=== PATIENT | female | born 1950 | race Caucasian/White ===

== ENCOUNTER → 2020-11-19 13:05 | Outpatient (REF) | payer MEDICARE, SELFPAY ==
--- NOTE | 2020-11-19 13:15 | CA_ITS ---
Transthoracic Echocardiogram Patient (Last, First, Middle): Angela Reyes A Gender: Female Date of : 1950 Age: 70 Procedure Date: 11/19/2020 Procedure Type: Transthoracic Echocardiogram Location: OP Height: 162.56 cm Weight: 95.25 kg BSA: 2.00 m2 Heart Rate: bpm BP: 132 / 80 mmHg Triple Air Valve Tester: ARUNA Referring MD: Maurizio Martinez MD Symptoms: R06.02 SOB I35.0 NON RHEUMATIC Study Quality: Fair/contrast Conclusions: - The left ventricular systolic function is mildly decreased. The visually estimated ejection fraction is between 40-45%. - The inferior wall and anterolateral wall are hypokinetic. - The left atrium is severely dilated. - There is mild aortic valve stenosis. - There is moderate to severe mitral valve regurgitation. - Mild to moderate pulmonary hypertension is present. Findings Procedure Information Contrast agent, definity, is being given per protocol without apparent complications. Left Ventricle Normal left ventricular cavity size. There is mildly increased left ventricular wall thickness. The left ventricular systolic function is mildly decreased. The visually estimated ejection fraction is between 40-45%. There is evidence of regional wall motion abnormalities. Abnormal diastolic function is noted. Spectral Doppler is indicative of a pseudonormal filling pattern. Elevated filling pressures. Wall Motion Rest Echo Findings The inferior wall and anterolateral wall are hypokinetic. Right Ventricle Normal right ventricular cavity size and systolic function. Atria The left atrium is severely dilated. Aortic Valve There is a normal trileaflet aortic valve. There is no evidence of calcification of the aortic valve. There is mild aortic valve stenosis. There is no aortic valve regurgitation. Mitral Valve The posterior mitral leaflet has restricted mobility. There is moderate to severe mitral valve regurgitation. There is no mitral valve stenosis. Pulmonic Valve Normal pulmonic valve structure and function. There is trace pulmonic valve regurgitation. Tricuspid Valve Normal tricuspid valve structure and function. There is mild anterior tricuspid leaflet thickening. There is mild tricuspid valve regurgitation. Normal right atrial pressure. Mild to moderate pulmonary hypertension is present. Great Vessels All visible segments of the aorta are normal in size. The visualized portions of the pulmonary artery and branches are normal. Venous The inferior vena cava is normal in size and collapses greater than 50% with inspiration. Pericardium/Pleural There is no evidence of pericardial effusion. Prior Study Comparison No prior study available for comparison. Measurements 2D Linear Measurements IVSd: 1.13 0.6-0.9/0.6-1.0 cm LVIDd: 6.13 3.9-5.3/4.2-5.9 cm LVIDs: 4.82 2.0-3.6 cm LVPWd: 1.07 0.7-1.1 cm Ao Root: 2.85 2.1-3.5 cm LV Mass: 361.75 67-162/88-224 g LVOT Diam: 1.95 3.0+(-)1.3 cm Mitral Valve MV Pk E: 1.32 MV PK A: 1.23 MV Decel Time: 325.75 E/A: 1.07 E'Lateral: 0.07 E'Medial: 0.04 Decel [place]: 4.06 MR VTI: 2.02 Aortic Valve AoV Pk Nik: 2.62 AoV Mn Nik: 1.73 AoV VTI: 0.62 AoV Pk Grad: 27.49 Aov Mn Grad: 13.98 LVOT LVOT Pk Nik: 0.82 LVOT Mn Nik: 0.55 LVOT VTI: 0.25 LVOT Pk Grad: 2.70 LVOT Mn Grad: 1.41 LVOT Diam: 1.95 LVOT Area: 3.00 Diastolic Function MV Pk E: 1.32 MV Pk A: 1.23 E/A: 1.07 E'Medial: 0.04 E' Laterial: 0.07 Tricuspid Valve TR Pk Nik: 3.32 TR Pk Grad: 44.20 RA Press: 3.00 RVSP: 47.00 Great Vessels Aorta Ao Root-2D: 2.85 2.0-3.7 cm Ao Asc: 2.88 2.1-3.4 cm Ao Arch: 2.70 Updated in Other Vendor System with Status of Final Vick Almaraz MD electronically signed on 11/21/2020 6:04:13 PM with status of Final
== END ==
LOC: HO.CARD 13:05
PROVIDERS: PCP Family Medicine; Visit Provider Family Medicine
DX: R06.02 Shortness of breath (principal); I35.0 Nonrheumatic aortic (valve) stenosis
CPT/HCPCS: 93306; Q9957

== ENCOUNTER 2021-01-08 10:00 | Outpatient (REF) | payer MEDICARE, SELFPAY ==
[2021-01-08 10:44] LABS: Anion Gap 11 (12-20); Blood Urea Nitrogen 31 mg/dL (9-16); Calcium 8.9 mg/dL (8.4-10.2); Carbon Dioxide 24 mmol/L (22-29); Chloride 106 mmol/L (96-108); Estimated Glomerular Filt Rate 35; Glucose Random 134 mg/dL (60-115); Potassium 5.5 mmol/L (3.3-5.1); Sodium 135 mmol/L (135-145)
== END 2021-01-08 10:01 | disposition home or self-care (01) ==
LOC: HO.LAB 10:00
PROVIDERS: PCP Family Medicine; Visit Provider Nurse Practitioner Adult Health
DX: E87.5 Hyperkalemia (principal)
CPT/HCPCS: 36415; 80048

== ENCOUNTER 2025-03-19 10:36 | Outpatient (AMB) | payer MEDICARE, SELFPAY ==
--- NOTE | 2025-03-19 10:36 | A.OFFPC_ITS ---
Vital Signs 03/19/25 10:43 Height 5 ft 4 in Weight 183 lb BMI 31.4 BP 148/72 H Blood Pressure Location Rt brachial Position Sitting Respiration 17 Pulse 97 Pulse Source Pulse Oximeter Temp 97.7 F Temp Source Temporal Artery Scan Pulse Oximetry (%) 99 Oxygen Delivery Method Room Air Intake Visit Reasons: follow up - Dr. Martinez pt. 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 Last seen 01/02/2025 CV: [place] [facility] [place]. She is on norvasc, aldactone. GI: Follows with Dr Vaca Previously seen by Hematology-[facility]. Has history of ROSANNE. Reports that she thinks she needs an infusion. Dr Martinez previously ordered In the past was following with Derm-[facility] and ENT-[facility] Colonoscopy-reports UTD Mammo overdue-ordered ROS CONSTITUTIONAL: Denies weight loss, fever and chills. HEENT: Denies changes in vision and hearing. RESPIRATORY: Denies SOB and cough. CV: Denies palpitations and CP GI: Denies abdominal pain, nausea, vomiting and diarrhea. : Denies dysuria and urinary frequency. MSK: Denies new myalgia and joint pain. SKIN: Denies rash and pruritus. NEUROLOGICAL: Denies headache PSYCHIATRIC: Denies recent changes in mood. PHYSICAL EXAM: GENERAL: Alert and oriented x 3. NAD EYES: EOMI. Anicteric. HENT: Moist mucous membranes. No scleral icterus. No cervical lymphadenopathy. LUNGS: Clear to auscultation bilaterally. CARDIOVASCULAR: Regular rate and rhythm. No murmur. No JVD. ABDOMEN: Soft, non-tender +bs EXTREMITIES: No edema. Non-tender. SKIN: No rashes or lesions. Warm. NEUROLOGIC: No focal neurological deficits. CN II-XII grossly intact PSYCHIATRIC: Cooperative. Appropriate mood and affect [facility] Social History e-Cigarette/Vaping Use: Never Used Physical exam (Primary Care) Vital Signs: Last Vital Signs Temp 97.7 F 03/19/25 10:43 Pulse 97 03/19/25 10:43 Resp 17 03/19/25 10:43 BP 148/72 H 03/19/25 10:43 Pulse Ox 99 03/19/25 10:43 Oxygen Delivery Method Room Air 03/19/25 10:43 BMI result Body Mass Index 31.4 Tobacco/Smoking Status: Tobacco use Status Tobacco use date assessed 03/19/25 03/19/25 10:46 e-Cigarette/Vaping Use Never Used 03/19/25 10:46 Coding Level of Care Code New Pt Level 4 (54679) Complex EM visit Add On G2211 Diagnoses Iron deficiency anemia, unspecified iron deficiency anemia type D50.9 Iron deficiency anemia type: unspecified iron deficiency Alcoholic cirrhosis of liver without ascites K70.30 Hepatic cirrhosis type: alcoholic cirrhosis Ascites presence: without ascites Primary hypertension I10 Hypertension type: primary hypertension Fatigue, unspecified type R53.83 Fatigue type: unspecified Assessment & Plan Assessment & Plan (1) Iron deficiency anemia: Code(s): D50.9 - Iron deficiency anemia, unspecified Category: Medical Qualifiers: Iron deficiency anemia type: unspecified iron deficiency Qualified Code(s): D50.9 - Iron deficiency anemia, unspecified (2) Cirrhosis: Code(s): K74.60 - Unspecified cirrhosis of liver Category: Medical Qualifiers: Hepatic cirrhosis type: alcoholic cirrhosis Ascites presence: without ascites Qualified Code(s): K70.30 - Alcoholic cirrhosis of liver without ascites (3) Hypertension: Code(s): I10 - Essential (primary) hypertension Category: Medical Qualifiers: Hypertension type: primary hypertension Qualified Code(s): I10 - Essential (primary) hypertension (4) Fatigue: Code(s): R53.83 - Other fatigue Category: Medical Qualifiers: Fatigue type: unspecified Qualified Code(s): R53.83 - Other fatigue Plan 74 year old to establish care Past medical, surgical social history reviewed Fatigue-check labs HTN-controlled on current medications. Continue cardiology follow up Mammo overdue and ordered Orders: Orders Complete Blood Count Auto Diff Today D50.9 - Iron deficiency anemia, unspecified, I10 - Essential (primary) hypertension, K74.60 - Unspecified cirrhosis of liver, R53.83 - Other fatigue Comprehensive Met. Panel Today D50.9 - Iron deficiency anemia, unspecified, I10 - Essential (primary) hypertension, K74.60 - Unspecified cirrhosis of liver, R53.83 - Other fatigue TSH reflex Free T4 Today D50.9 - Iron deficiency anemia, unspecified, I10 - Essential (primary) hypertension, K74.60 - Unspecified cirrhosis of liver, R53.83 - Other fatigue UA CC w/rflx Micro + Cult Today D50.9 - Iron deficiency anemia, unspecified, I10 - Essential (primary) hypertension, K74.60 - Unspecified cirrhosis of liver, R53.83 - Other fatigue MM tomosynthesis screening BI Today Z12.31 - Encounter for screening mammogram for malignant neoplasm of breast IRON PROFILE Today D50.9 - Iron deficiency anemia, unspecified, I10 - Essential (primary) hypertension, K74.60 - Unspecified cirrhosis of liver, R53.83 - Other fatigue Vitamin B12 and Folate Today D50.9 - Iron deficiency anemia, unspecified, I10 - Essential (primary) hypertension, K74.60 - Unspecified cirrhosis of liver, R53.83 - Other fatigue
[2025-03-19 10:43] VITALS: BP 148/72; PULSE 97; RESP 17; TEMP 36.5; O2SAT 99; BMI 31.4
--- OUTSIDE RECORDS SUMMARY | 2025-03-19 11:18 | XMS_ITS | Clinical Summary ---
Author Organization [facility] [address] [facility] Address [address] [place] [address] Phone Care Team Providers Care Radiology Technician Name Role Phone Maurizio Martinez MD Primary Care Provider [phone] Allergies Active Allergy Reactions Criticality Noted Date Comments Lisinopril 08/29/2024 Medications spironolactone (ALDACTONE) 25 mg tablet Take 1 tablet (25 mg total) by mouth 1 (one) time each day in the morning. Active sertraline (ZOLOFT) 25 mg tablet Take 1 tablet (25 mg total) by mouth 1 (one) time each day in the morning. Active magnesium oxide (MAG-OX) 400 mg (241.3 elemental magnesium) tablet Take 1 tablet (400 mg total) by mouth 2 times daily. 1 Active loratadine (Claritin) 10 mg tablet Take 1 tablet (10 mg total) by mouth. 8 Active furosemide (Lasix) 20 mg tablet Take 1 tablet (20 mg total) by mouth. 3 Active fluticasone propionate (Flonase Allergy Relief) 50 mcg/actuation nasal spray Administer into affected nostril(s). 8 Active carvediloL (COREG) 3.125 mg tablet Take 1 tablet (3.125 mg total) by mouth 2 times daily. 1 Active budesonide-form oteroL (SYMBICORT) 80-4.5 mcg/actuation inhaler Inhale 2 puffs by mouth 2 times daily. 2 Active atorvastatin (LIPITOR) 80 mg tablet Take 1 tablet (80 mg total) by mouth daily. 1 Active amLODIPine (NORVASC) 5 mg tablet Take 1 tablet (5 mg total) by mouth 1 (one) time each day. Active albuterol HFA (PROAIR HFA ; PROVENTIL HFA ; VENTOLIN HFA) 90 mcg/actuation inhaler Inhale 2 puffs by mouth Every 4 hours as needed. 1 Active Active Problems Problem Noted Date Diagnosed Date Alcoholic cirrhosis of liver without ascites ([facility] V24, [facility] V28) 08/29/2024 Assessment & Plan (10/17/2024 9:23 AM EST): Assessment & Plan (08/29/2024 2:28 PM EST): Orders: US Abdomen Complete; Future Comprehensive metabolic panel; Future Hepatic function panel; Future Prothrombin time with INR; Future Alpha fetoprotein tumor marker; Future Iron with TIBC and ferritin; Future Anemia 08/29/2024 Assessment & Plan (08/29/2024 2:28 PM EST): Orders: Iron with TIBC and ferritin; Future CHF (congestive heart failure) ([facility] V24, [facility] V28) 08/29/2024 Diabetes ([facility] V24, [facility] V28) 12/17/2020 Hypertension 12/17/2020 PVC (premature ventricular contraction) 12/18/19 21 SOB (shortness of breath) 12/17/2020 Surgical History Surgery Date Site/Laterality Comments CHOLECYSTECTOMY PROCEDURE: HISTORICAL CHOLECYSTECTOMY OTHER SURGICAL HISTORY PROCEDURE: RI REPOSITIONING IO LENS PROSTHESIS REQ INC SPX ESOPHAGOGASTRODUODENOSCOPY 07/20/2022 - 08/19/2022 nl, no variaces (3yr) Medical History Medical History Date Comments Asthma DX:Asthma Eczema DX:Eczema Nasal polyps DX:Nasal polyps GERD (gastroesophageal reflux disease) DX:GERD (gastroesophageal reflux disease) Venous insufficiency DX:Venous i nsufficiency Depression DX:Depression Macular degeneration DX:Macular degeneration Cirrhosis ([facility] V24, [facility] V28) DX:Cirrhosis (HCC) Social History Tobacco Use Types Packs/Day Years Used Date Smoking Tobacco: Never Tobacco Cessation:Counseling Given: Not Answered Alcohol Use Standard Drinks/Week Comments Yes 0 (1 standard drink = 0.6 oz pur e alcohol) Comments Unknown Sex and Gender Information Value Date Recorded Sex Assigned at Not on file Legal Sex Female 1:56 AM EST Gender Identity Not on file Sexual Orientation Not on file Obstetrics History Last Filed Vital Signs Vital Sign Reading Time Taken Comments Blood Pressure - - Pulse - - Temperature - - Respiratory Rate - - Oxygen Saturation - - Inhaled Oxygen Concentration - - Weight 79.4 kg (175 lb) 10/17/2024 9:00 AM EST Height 162.6 cm (5' 4 ) 10/17/2024 9:00 AM EST Body Mass Index 30.04 10/17/2024 9:00 AM EST Plan of Treatment Health Maintenance Due Date Last Done Comments Breast Cancer Screening 1950 Diabetes: Annual Foot Exam 1960 Diabetes: Annual Retina Eye Exam 1960 Hepatitis A Vaccines (1 of 2 - Risk 2-dose series) 1969 Pneumococcal Vaccine: 50+ Years (1 of 2 - PCV) 1969 Zoster Vaccines (1 of 2) 2000 Hepatitis B Vaccines (1 of 3 - Risk 3-dose series) 2010 RSV Immunization Adult Patients (1 - Risk 60-74 years 1-dose series) 2010 Cholesterol Screening (Lipid Panel) 07/23/2022 Colorectal Cancer Screening: Colonoscopy 07/23/2022 Falls Risk Assessment 07/23/2022 Medicare Annual Wellness Visit 07/23/2022 Osteoporosis Screening (Bone Density Screening) 07/23/2022 Social Influencers of Health Screening 07/23/2022 Diabetes: Annual Urine Albumin-Creatinine Ratio (uACR) 08/02/2022 12/11/2020 Diabetes: Blood Sugar Control Test (HGBA1C) 08/02/2022 COVID-19 Vaccine ( season) 2024 12/26/2021, 11/21/2020, 10/31/2020 Depression Screening 08/20/2024 Influenza Vaccine (#1) 2025 Diabetes: Annual GFR (Glomerular Filtration Rate) 08/29/2025 08/29/2024, 04/05/2022, 12/14/2020, Additional history exists Hypertension/CHF/CAD Annual BMP Blood Test 08/29/2025 08/29/2024, 04/05/2022, 12/14/2020, Additional history exists DTaP,Tdap,and Td Vaccines (2 - Td or Tdap) 11/10/2031 11/09/2021 Hepatitis C Screening Completed 11/11/2021 HIB Vaccines Aged Out No longer eligi ble based on patient's age to complete this topic HPV Vaccines Aged Out No longer eligi ble based on patient's age to complete this topic IPV Vaccines Aged Out No longer eligi ble based on patient's age to complete this topic MMR Vaccines Aged Out No longer eligi ble based on patient's age to complete this topic Meningococcal ACWY Vaccine Aged Out N o longer eligible based on patient's age to complete this topic Meningococcal B Vaccine Aged Out No l onger eligible based on patient's age to complete this topic RSV Immunization Patients Under 20 months Aged Out No longer eligible based on patient's age to complete this topic Varicella Vaccines Aged Out No longer eligible based on patient's age to complete this topic Procedures Procedure Name Priority Date/Time Associated Diagnosis Comments COMPREHENSIVE METABOLIC PANEL Routine 08/29/2024 1:55 PM EST Alcoholic cirrhosis of liver without ascites (CMS/HCC V24, CMS/HCC V28) from Last 3 Months or Most Recently Relevant to Health Maintenance Results * (ABNORMAL) Comprehensive metabolic panel (08/29/2024 1:55 PM EST) Sodium 139 133 - 145 mmol/L LAB CHEMISTRY METHOD 08/29/2024 3:[address] [facility] Potassium 4.4 3.5 - 5.5 mmol/L LAB CHEMISTRY METHOD 08/29/2024 3:[address] [facility] Chloride 109 96 - 110 mmol/L LAB CHEMISTRY METHOD 08/29/2024 3:[address] [facility] CO2 24 21 - 32 mmol/L LAB CHEMISTRY METHOD 08/29/2024 3:[address] [facility] Anion Gap 6 3 - 11 LAB CHEMISTRY METHOD 08/29/2024 3:17 PM [facility] Glucose 103(H) 70 - 100 mg/dL LAB CHEMISTRY METHOD 08/29/2024 3:17 PM [facility] BUN 15 5 - 25 mg/dL LAB CHEMISTRY METHOD 08/29/2024 3:17 PM [facility] Creatinine 1.03 0.50 - 1.10 mg/dL LAB CHEMISTRY METHOD 08/29/2024 3:17 PM [facility] eGFR 57(L) >=60 mL/min/1. 73m2 LAB CHEMISTRY METHOD 08/29/2024 3:17 PM [facility] Comment:Calculation based on the Chronic Kidney Disease Epidemiology Collaboration (CKD-EPI) equation refit without adjustment for race. BUN/Creatinine Ratio 14.6 LAB CHEMISTRY METHOD 08/29/2024 3:17 PM [facility] Calcium 8.0(L) 8.5 - 10.5 mg/dL LAB CHEMISTRY METHOD 08/29/2024 3:17 PM [facility] AST (SGOT) 47(H) 10 - 42 unit/L LAB CHEMISTRY METHOD 08/29/2024 3:17 PM [facility] ALT (SGPT) 32 10 - 60 unit/L LAB CHEMISTRY METHOD 08/29/2024 3:17 PM [facility] Alkaline Phosphatase 148(H) 42 - 121 unit/L LAB CHEMISTRY METHOD 08/29/2024 3:17 PM [facility] Total Protein 6.4 6.0 - 8.0 g/dL LAB CHEMISTRY METHOD 08/29/2024 3:17 PM [facility] Albumin 3.1(L) 3.2 - 5.0 g/dL LAB CHEMISTRY METHOD 08/29/2024 3:17 PM [facility] Total Bilirubin 2.2(H) 0.0 - 1.4 mg/dL LAB CHEMISTRY METHOD 08/29/2024 3:17 PM EST [facility] Blood Venous blood specimen / Unknown Venipuncture / Unknown 08/29/2024 1:55 PM EST 08/29/2024 2:34 PM EST Elizabeth LIM LAB BLOOD ORDERABLES Final R esult [facility] ([facility]) [facility] [address] [place] [address], from Last 3 Months or Most Recently Relevant to Health Maintenance Insurance MEDICARE Care Teams Radiology Technician Relationship Specialty Start Date End Date Maurizio Martinez MD [address] [place] [address] [place] [id number] PCP - General 09/09/07
--- OUTSIDE RECORDS SUMMARY | 2025-03-19 11:18 | XMS_ITS | Encounter Summary ---
Author Organization [facility] Address [address] [facility] [address] [place] [id number] Phone Care Team Providers Care Toll Line Mechanic Name Role Phone Pcp, Unknown Primary Care Provider Unavailgita e Julianne Taylor MD Unavailable [email or web address] Maurizio Martinez MD Primary Care Provider Julianne Taylor MD Unavailable [email or web address] Encounter Details Date Type Department Care Team (Late st Contact Info) Description 04/27/2023 Procedure Pass [facility] Cardiac US [address] [place] [address] Social History Tobacco Use Types Packs/Day Years Used Date Smoking Tobacco: Never Smokeless Tobacco: Never Alcohol Use Standard Drinks/Week Comments Yes 14 (1 standard drink = 0.6 oz pu re alcohol) previously drank more Education Answer Date Recorded Are you interested in more education? Not on gautam e 12/15/2022 Are you concerned about learning? Not on file 12/15/2022 No 12/15/2022 No 12/15/2022 Digital Access Answer Date Recorded No 01/10/2023 No 01/10/2023 Reliable internet access at home? Not on file 01/10/2023 Device with a working camera? Not on file Comments Unknown Sex and Gender Information Value Date Recorded Sex Assigned at Female 11/26/2020 11:38 AM EDT Legal Sex Female 11:24 AM EDT Gender Identity Female 11/26/2020 11:38 AM EDT Sexual Orientation Straight 11/26/2020 11 :38 AM EDT documented as of this encounter Plan of Treatment Not on file documented as of this encounter Visit Diagnoses Not on filedocumented in this encounter Additional Health Concerns Assessment Noted Time PHQ-9 Depression Total Score: 8 04/04/20 22 3:27 PM EDT PHQ-2 Depression Total Score: 4 04/04/20 22 3:27 PM EDT documented as of this encounter Care Teams Toll Line Mechanic Relationship Specialty Start Date End Date Pcp, Unknown PCP - General 01/10/23 12/05/23 Maurizio Martinez MD [address] [place] [address] [place] [address] PCP - General Internal Medicine 12/06/23 Julianne Taylor MD Partners Attributed Provider 04/28/23 12/05/23 Julianne Taylor MD Partners Attributed Provider 04/28/23 12/28/23 documented as of this encounter Additional Source Comments The information contained in this document represents components of the legal health record. It is not the complete legal health record.[facility]
== END 2025-03-19 11:07 | disposition home or self-care (01) ==
LOC: HO.HMCHD 10:36
PROVIDERS: PCP Family Medicine; Visit Provider Internal Medicine
DX: D50.9 Iron deficiency anemia, unspecified (principal); K70.30 Alcoholic cirrhosis of liver without ascites; I10 Essential (primary) hypertension; R53.83 Other fatigue

== ENCOUNTER → 2025-03-19 10:36 | Outpatient (BNVA) | payer MEDICARE, SELFPAY | PROVIDERS: PCP Family Medicine; Visit Provider Internal Medicine | DX: D50.9 Iron deficiency anemia, unspecified (principal); K70.30 Alcoholic cirrhosis of liver without ascites; I10 Essential (primary) hypertension; R53.83 Other fatigue | CPT/HCPCS: 99202 ==

== ENCOUNTER 2025-03-19 11:17 | Outpatient (REF) | payer MEDICARE, SELFPAY ==
[2025-03-19 13:25] LABS: Hematocrit 27.8 % (37.0-47.0); Hemoglobin 9.7 g/dl (12.0-16.0); Imm Gran Abs Auto 0.01 X10*3/uL (0.00-0.03); Imm Gran Pct Auto 0.3 % (0.0-0.4); Lymphocytes Absolute Auto 0.7 X10*3/uL (1.2-4.9); Mean Corpuscular HGB Conc 34.9 g/dl (31.0-35.0); Mean Corpuscular Hemoglobin 38.8 pg (27.0-33.0); NRBC Abs Auto 0.000 X10*3/uL (0.0-0.012); NRBC Pct Auto 0.0 /100WBC (0.0-0.2); Red Blood Count 2.50 X10*6/uL (4.20-5.50); White Blood Count 3.3 X10*3/uL (4.8-10.8)
[2025-03-19 13:33] LABS: Appearance Urine Clear; Glucose Urine UA Negative (Negative); PH 5.0 (5.0-9.0); Specific Gravity - Urine 1.015 (1.005-1.025); UMIC TRIGGER UACC YES
[2025-03-19 13:36] LABS: MANUAL DIFF FLAG SCAN; Mean Corpuscular Volume 111.2 fL (80.0-98.0); Platelet Count 69 X10*3/uL (160-400)
[2025-03-19 13:52] LABS: Alanine Aminotransferase 26 U/L (0-31); Albumin Level 3.1 g/dL (3.5-5.0); Alkaline Phosphatase 156 U/L (39-117); Anion Gap 11 (12-20); Aspartate Amino Transferase 60 U/L (5-31); Blood Urea Nitrogen 18 mg/dL (9-16); Calcium 8.2 mg/dL (8.4-10.2); Carbon Dioxide 21 mmol/L (22-29); Chloride 112 mmol/L (96-108); Estimated Glomerular Filt Rate 54; Iron 99 mcg/dL (30-160); Percent Iron Saturation 40 % (15-50); Potassium 5.2 mmol/L (3.3-5.1); Sodium 139 mmol/L (135-145); Total Iron Binding Capacity 245 mcg/dL (228-428); Total Protein 6.3 g/dL (6.5-8.0); Unsaturated Iron Binding 146 ug/dL
[2025-03-19 14:18] LABS: Folate < 2.2 ng/mL (> or = 4.0); Vitamin B12 479 pg/mL (200-900)
[2025-03-19 14:47] LABS: Free T4 (Free Thyroxine) 0.90 ng/dL (0.71-1.85)
== END 2025-03-19 11:18 | disposition home or self-care (01) ==
LOC: HO.10HDL 11:17
PROVIDERS: Visit Provider Internal Medicine
DX: I10 Essential (primary) hypertension (principal); K74.60 Unspecified cirrhosis of liver; R53.83 Other fatigue; D50.9 Iron deficiency anemia, unspecified
CPT/HCPCS: 36415; 80053; 81001; 82607; 82746; 83540; 84439; 84443; 85025

== ENCOUNTER 2025-05-27 18:41 | Emergency (ER) | payer MEDICARE, SELFPAY ==
--- NOTE | ~2025-05-27 | XR_ITS ---
CLINICAL HISTORY: CP 1 view chest x-ray Comparison: None provided Findings: The heart is mildly enlarged. Atherosclerotic vascular disease of the aortic arch. Mild tortuosity of descending thoracic aorta. No consolidation, significant pleural effusion or pneumothorax. No acute fracture. Degenerative changes thoracic spine. IMPRESSION: 1. No acute findings. This document has been electronically signed by: Tanisha Oswald MD on 05/27/2025 20:08:56
[2025-05-27 18:46] VITALS: BP 170/78; PULSE 82; RESP 20; TEMP 36.4; O2SAT 100; BMI 30.9
--- NOTE | 2025-05-27 18:53 | ECG_ITS ---
Test Reason : SOB Blood Pressure : */* mmHG Vent. Rate : 73 BPM Atrial Rate : 73 BPM P-R Int : 186 ms QRS Dur : 130 ms QT Int : 416 ms P-R-T Axes : 41 -33 110 degrees QTcB Int : 458 ms Normal sinus rhythm Left axis deviation Left bundle branch block Abnormal ECG No previous ECGs available Referred By: Generic ED Physician Electronically Signed By: TYRONE RAO MD
[2025-05-27 19:34] LABS: MANUAL DIFF FLAG NO
[2025-05-27 19:37] LABS: Venous Blood Gas Refer to POC result
[2025-05-27 19:38] LABS: VBG HCO3 19 mmol/L (22-26); VBG O2 % Saturation 75.0 %
[2025-05-27 19:41] LABS: Hematocrit 25.3 % (37.0-47.0); Hemoglobin 8.9 g/dl (12.0-16.0); Imm Gran Abs Auto 0.01 X10*3/uL (0.00-0.03); Imm Gran Pct Auto 0.4 % (0.0-0.4); Lymphocytes Absolute Auto 0.5 X10*3/uL (1.2-4.9); Mean Corpuscular HGB Conc 35.2 g/dl (31.0-35.0); Mean Corpuscular Hemoglobin 39.6 pg (27.0-33.0); NRBC Abs Auto 0.000 X10*3/uL (0.0-0.012); NRBC Pct Auto 0.0 /100WBC (0.0-0.2); Red Blood Count 2.25 X10*6/uL (4.20-5.50)
[2025-05-27 19:48] LABS: INTERNATIONAL NORM RATIO 1.2 (0.9-1.1); Prothrombin Time 13.9 SEC (10.9-12.4)
[2025-05-27 19:51] LABS: Alanine Aminotransferase 18 U/L (0-31); Albumin Level 2.9 g/dL (3.5-5.0); Alkaline Phosphatase 134 U/L (39-117); Anion Gap 10 (12-20); Aspartate Amino Transferase 49 U/L (5-31); Blood Urea Nitrogen 12 mg/dL (9-16); Calcium 8.2 mg/dL (8.4-10.2); Carbon Dioxide 21 mmol/L (22-29); Chloride 114 mmol/L (96-108); Creatinine Clr Calc Pharmacy 59.8; Estimated Glomerular Filt Rate > 60; Magnesium 1.6 mg/dL (1.6-2.6); Potassium 4.8 mmol/L (3.3-5.1); Sodium 140 mmol/L (135-145); Total Protein 5.9 g/dL (6.5-8.0)
[2025-05-27 19:52] LABS: COVID-19 Test Negative (Negative); IDNOW Serial# 55D5AD1C
[2025-05-27 19:54] LABS: IDNOW Serial# 58CA691E; Influenza B2 Negative (Negative)
[2025-05-27 19:59] LABS: Troponin-I High Sensitivity 15.2 ng/L (<3.5-17.0)
[2025-05-27 20:04] LABS: NT Pro B Type Natriuretic Pept 298.9 pg/mL (<300)
[2025-05-27 20:25] LABS: Mean Corpuscular Volume 112.4 fL (80.0-98.0); Platelet Count 51 X10*3/uL (160-400); White Blood Count 2.5 X10*3/uL (4.8-10.8)
--- NOTE | 2025-05-27 22:01 | PC.NURSE ---
pt's brother walked up to triage door demanding plan of care for patient what exactly are we waiting for? informed brother t/w will evaluate, apologized for delay. Pt taken into a dept to bed before t/w could follow up.
[2025-05-27 22:26] VITALS: BP 163/72; PULSE 65; RESP 18; O2SAT 99
--- NOTE | 2025-05-27 22:35 | ED.GENADULT ---
HPI - General Adult General Chief complaint: Dyspnea Stated complaint: SOB, Difficulty breathing, Weakness Time Seen by Provider: 05/27/25 21:59 Source: patient, family (brother), RN notes reviewed and old records reviewed Mode of arrival: ambulatory Limitations: no limitations History of Present Illness ED Provider: Emma HPI narrative: 75-year-old female with a past medical history significant for hypertension, alcoholic liver disease, iron-deficiency anemia, asthma, congestive heart failure presents for evaluation of shortness of breath and fatigue. She reports that her symptoms have been declining for about a week and a half to 2 weeks. However today her symptoms seem much worse She reports a dry cough starting today. Her weakness and fatigue is significantly worse today pain She denies any leg swelling pain Denies any abdominal pain, distention. She reports requiring a blood transfusion in the past due to anemia and feels like this may be the cause of her symptoms today Denies any sick contacts Related Data Home Medications ?Medication ?Instructions ?Recorded ?Confirmed amlodipine 5 mg tablet 5 mg PO DAILY 03/19/25 carvedilol 3.125 mg tablet 3.125 mg PO BID 03/19/25 ferrous sulfate 325 mg (65 mg 325 mg PO DAILY 03/19/25 iron) tablet (Feosol) fluticasone propionate 250 2 inh inhalation ONCE 03/19/25 mcg/actuation blister powder for inhalation (Flovent Diskus) sertraline 25 mg tablet 25 mg PO QAM 03/19/25 spironolactone 25 mg tablet 25 mg PO QAM 03/19/25 vitamin E 180 mg/2 mL oral drops mg PO .qd 03/19/25 (Purevita Vitamin E) Previous Rx's ?Medication ?Instructions ?Recorded albuterol sulfate 90 mcg/actuation 2 puff inhalation Q4-6H PRN 02/26/25 aerosol inhaler (Ventolin HFA) shortness of breath or wheezing #6.7 grams prednisone 20 mg tablet 40 mg (2 x 20 mg) PO DAILY #8 tabs 05/27/25 Allergies Allergy/AdvReac Type Severity Reaction Status Date / Time lisinopril Allergy Severe Anaphylaxis Verified 05/27/25 18:51 Review of Systems Constitutional: Constitutional: Denies body ache(s), Denies chills, Denies fever(s), Denies headache(s) and Denies snoring Eyes: Eyes: Denies blurry vision, Denies floaters and Denies irritation ENT: Denies vertigo, Denies dizziness and Denies headache(s) Cardiovascular: Cardiovascular: Denies chest pain, Denies chest pain at rest, Reports dyspnea and Reports dyspnea on exertion Respiratory: Respiratory: Denies change in phlegm color, Denies chest congestion, Reports cough, Denies excessive phlegm production, Denies pain on inspiration, Denies pain with cough, Reports dyspnea, Reports dyspnea on exertion, Denies snoring, Denies stridor and Reports wheezing Gastrointestinal: Gastrointestinal: Denies abdominal pain, Denies nausea and Denies vomiting Musculoskeletal: Musculoskeletal: Denies back pain Integumentary/Breasts: Skin/Breast: Denies rash Neurologic: Denies vertigo, Denies dizziness and Denies headache(s) Allergic/Immunologic: Allergic/Immunologic: Reports wheezing PMFSH Social History Social History e-Cigarette/Vaping Use: Never Used Advance Directives: No Advance Directives Information Provided: No Do you have a plan to hurt others: No Plan Physical Exam ED Vital Signs: Vital Signs - 24 hr 05/27/25 18:46 05/27/25 22:26 Temperature 97.5 F Pulse Rate 82 65 Respiratory Rate 20 18 Blood Pressure 170/78 H 163/72 H Pulse Oximetry 100 99 Oxygen Delivery Method Room Air Room Air BMI result Body Mass Index 30.9 Const General: healthy appearing, comfortable, no acute distress, alert and awake Nutritional Appearance: well nourished Orientation/consciousness: patient oriented x3 HENMT Head: Yes normocephalic and Yes atraumatic Eyes Eyelids: Yes eyelids normal Conjunctivae: conjunctivae normal Sclerae: sclerae normal Corneas: corneas normal Pupils: Equal, round and reactive pupils present EOM: EOMs intact bilaterally Neck Neck: Yes full ROM Resp Other: There was an expiratory wheeze heard in the left lung field only Effort & Inspection: normal respiratory effort, able to speak in complete sentences and not labored Cardio Rate: regular rate Rhythm: regular rhythm GI Inspection: No distended Palpation (GI): Soft to palpation, not firm, nontender, no guarding and not rigid Skin General skin exam: elasticity normal Neuro General: patient oriented x3 Cranial nerves: Yes Equal, round and reactive pupils present and Yes Bilaterally intact EOM present Cognition (Neuro): normal cognition Extrem Other: Moving all extremities well without any obvious deformities Medical Decision Making Medical Decision Making [facility] Narrative: 75-year-old female presents for evaluation of primarily dyspnea on exertion and associated dry cough and weakness/fatigue. Her symptoms started a couple weeks ago with a got significantly worse today. No fevers or chills, she has no chest pain. No significant leg swelling. She had a workup that included labs, EKG and a chest x-ray as well as viral swabs. The chest x-ray shows no significant pleural effusions, no focal infiltrates, no pneumothorax. Viral swabs are negative. The patient's troponin is negative, BNP is just under 300, she rules out for ACS, she does not have an acute CHF exacerbation. Her EKG showed a sinus rhythm with left bundle branch block. I was able to view [facility] records and the patient had an EKG dated 05/07/2025 that confirms the left bundle branch is not new. The patient does have some wheezing on exam which could be related to asthma, we will treat her with a short course of prednisone. The patient does not require blood transfusion, she has no active bleeding and a hemoglobin today is 8.9. The patient's abdomen is nondistended, she has no abdominal pain, she does not have any evidence of ascites that would be contributing to her dyspnea Differential Diagnosis Differential Diagnoses: The differential diagnosis associated with the presentation includes Acute asthma exacerbation CHF Pneumonia Bronchitis COVID Influenza Liver cirrhosis Admission/Observation Consideration of admission/observation: Escalation of care including admission/observation considered Lab Data [facility] Lab Attestation statement: I reviewed the patient's lab results. Pancytopenia consistent with a baseline. No significant left shift. The patient's chloride is slightly elevated to 114 possibly due to mild dehydration with a carbon dioxide level of 21 this could be due to tachypnea. Troponin and BNP within normal limits 05/27/25 19:28 05/27/25 19:28 Labs: Lab Results 05/27/25 05/27/25 Range/Units 19:28 19:34 WBC 2.5 L (4.8-10.8) X10*3/uL RBC 2.25 L (4.20-5.50) X10*6/uL Hgb 8.9 L (12.0-16.0) g/dl Hct 25.3 L (37.0-47.0) % MCV 112.4 H (80.0-98.0) fL MCH 39.6 H (27.0-33.0) pg MCHC 35.2 H (31.0-35.0) g/dl RDW 13.4 (11.0-16.0) % Plt Count 51 L D (160-400) X10*3/uL MPV 10.0 (9.4-12.3) fL Immature Gran % (Auto) 0.4 (0.0-0.4) % Neut % (Auto) 62.9 (45-73) % Lymph % (Auto) 21.3 (20-40) % [place] % (Auto) 5.5 (2-11) % Eos % (Auto) 9.1 H (0-4) % Baso % (Auto) 0.8 (0-2) % Lymph # (Auto) 0.5 L (1.2-4.9) X10*3/uL [place] # (Auto) 0.1 (0.1-1.2) X10*3/uL Eos # (Auto) 0.2 (0.0-0.4) X10*3/uL Baso # (Auto) 0.0 (0.0-0.2) X10*3/uL Abs Immat Gran (auto) 0.01 (0.00-0.03) X10*3/uL Absolute Neuts (auto) 1.6 L (2.0-8.3) x10*3/uL Absolute Nucleated RBC 0.000 (0.0-0.012) X10*3/uL Nucleated RBC % (auto) 0.0 (0.0-0.2) /100WBC PT 13.9 H (10.9-12.4) SEC INR 1.2 H (0.9-1.1) VBG pH 7.43 (7.32-7.43) VBG pCO2 29 mmHg VBG pO2 45 mmHg VBG HCO3 19 L (22-26) mmol/L VBG O2 Saturation 75.0 % VBG Base Excess -3.4 mmol/L Sodium 140 (135-145) mmol/L Potassium 4.8 (3.3-5.1) mmol/L Chloride 114 H (96-108) mmol/L Carbon Dioxide 21 L (22-29) mmol/L Anion Gap 10 L (12-20) BUN 12 (9-16) mg/dL Creatinine 0.84 (0.5-1.4) mg/dL Estim Creat Clear Calc 59.8 Estimated GFR > 60 Random Glucose 91 (60-115) mg/dL Calcium 8.2 L (8.4-10.2) mg/dL Magnesium 1.6 (1.6-2.6) mg/dL Total Bilirubin 1.6 H (0.0-1.0) mg/dL Direct Bilirubin 0.7 H (0.0-0.5) mg/dL AST 49 H (5-31) U/L ALT 18 (0-31) U/L Alkaline Phosphatase 134 H (39-117) U/L Troponin I High Sens 15.2 (<3.5-17.0) ng/L NT-Pro-B Natriuret Pep 298.9 (<300) pg/mL Total Protein 5.9 L (6.5-8.0) g/dL Albumin 2.9 L (3.5-5.0) g/dL COVID-19 ([facility]) Negative (Negative) COVID-19 Clin Com See Note Influenza Type A (DEL) Negative (Negative) Influenza Type B (DEL) Negative (Negative) Influenza A & B Note See Note Independent Interpretation I performed an independent interpretation of an: EKG and Plain X-Ray (Agree with Radiology interpretation) Interpretation: Normal sinus rhythm with a rate of [address] segment elevations or depressions. Left bundle branch block noted Radiology Impression Discussion of test interpretation with radiology: I have reviewed the radiologist's reading. Radiologist Impression: CLINICAL HISTORY: CP 1 view chest x-ray Comparison: None provided Findings: The heart is mildly enlarged. Atherosclerotic vascular disease of the aortic arch. Mild tortuosity of descending thoracic aorta. No consolidation, significant pleural effusion or pneumothorax. No acute fracture. Degenerative changes thoracic spine. IMPRESSION: 1. No acute findings. This document has been electronically signed by: Tanisha Oswald MD on 05/27/2025 20:08:56 Discharge Plan Discharge Clinical Impression: Acute dyspnea Patient Disposition: Home, Self-Care Instructions: Asthma (ED) Additional Instructions: Your workup in the ER today was reassuring. You do have a mild anemia but not requiring a blood transfusion. You do not have any evidence of acute congestive heart failure. No evidence of pneumonia. Your symptoms are likely multifactorial including due to asthma. You may take prednisone 40 mg daily for the next 4 days You may continue taking the rest of your medications as prescribed. Follow up with your primary doctor, return for new or worsening symptoms Prescriptions: New prednisone 20 mg tablet 40 mg PO DAILY Qty: 8 0RF No Action albuterol sulfate [Ventolin HFA] 90 mcg/actuation HFA aerosol inhaler 2 puff inhalation Q4-6H PRN (Reason: shortness of breath or wheezing) Qty: 6.7 3RF amlodipine 5 mg tablet 5 mg PO DAILY spironolactone 25 mg tablet 25 mg PO QAM carvedilol 3.125 mg tablet 3.125 mg PO BID ferrous sulfate [Feosol] 325 mg (65 mg iron) tablet 325 mg PO DAILY sertraline 25 mg tablet 25 mg PO QAM fluticasone propionate [Flovent Diskus] 250 mcg/actuation blister with device 2 inh inhalation ONCE Purevita Vitamin E 180 mg/2 mL drops PO .qd Print Language: Dutch
[2025-05-27 23:32] VITALS: BP 163/72; PULSE 65; RESP 18; TEMP 36.4; O2SAT 99
== END 2025-05-27 23:33 | disposition home or self-care (01) ==
PROVIDERS: Emergency Provider Emergency Medicine; PCP Internal Medicine
DX: R06.00 Dyspnea, unspecified (principal); I11.0 Hypertensive heart disease with heart failure; I50.9 Heart failure, unspecified; I44.7 Left bundle-branch block, unspecified; K70.9 Alcoholic liver disease, unspecified; D50.9 Iron deficiency anemia, unspecified; Z79.899 Other long term (current) drug therapy
CPT/HCPCS: 71045; 80053; 82248; 82803; 83735; 83880; 84484; 85025; 85610; 87502; 87635; 93005; 99283; 99284

== ENCOUNTER → 2025-05-27 18:53 | Outpatient (BNV) | payer MEDICARE, SELFPAY | PROVIDERS: Emergency Provider Emergency Medicine; PCP Internal Medicine; Visit Provider Internal Medicine Cardiovascular Disease | DX: I44.7 Left bundle-branch block, unspecified (principal) | CPT/HCPCS: 93010 ==

== ENCOUNTER → 2025-05-27 18:54 | Outpatient (BNV) | payer MEDICARE, SELFPAY | PROVIDERS: PCP Internal Medicine; Visit Provider Specialist | DX: R07.9 Chest pain, unspecified (principal) | CPT/HCPCS: 71045 ==

== ENCOUNTER 2025-06-23 14:15 | Outpatient (REF) | payer MEDICARE, SELFPAY ==
[2025-06-23 18:09] LABS: MANUAL DIFF FLAG NO
[2025-06-23 18:10] LABS: Hematocrit 28.9 % (37.0-47.0); Hemoglobin 9.6 g/dl (12.0-16.0); Imm Gran Abs Auto 0.01 X10*3/uL (0.00-0.03); Imm Gran Pct Auto 0.3 % (0.0-0.4); Lymphocytes Absolute Auto 0.6 X10*3/uL (1.2-4.9); Mean Corpuscular HGB Conc 33.2 g/dl (31.0-35.0); Mean Corpuscular Hemoglobin 37.6 pg (27.0-33.0); Mean Corpuscular Volume 113.3 fL (80.0-98.0); NRBC Abs Auto 0.000 X10*3/uL (0.0-0.012); NRBC Pct Auto 0.0 /100WBC (0.0-0.2); Platelet Count 71 X10*3/uL (160-400); Red Blood Count 2.55 X10*6/uL (4.20-5.50); White Blood Count 3.5 X10*3/uL (4.8-10.8)
[2025-06-23 18:29] LABS: Iron 167 mcg/dL (30-160); Percent Iron Saturation 70 % (15-50); Total Iron Binding Capacity 240 mcg/dL (228-428); Unsaturated Iron Binding 73 ug/dL
[2025-06-23 19:00] LABS: Folate 3.2 ng/mL (> or = 4.0); Vitamin B12 564 pg/mL (200-900)
== END 2025-06-23 14:16 | disposition home or self-care (01) ==
LOC: HO.WFDLDS 14:15
PROVIDERS: PCP Internal Medicine; Visit Provider Internal Medicine
DX: I10 Essential (primary) hypertension (principal); K70.30 Alcoholic cirrhosis of liver without ascites; D50.9 Iron deficiency anemia, unspecified; R53.83 Other fatigue; R06.02 Shortness of breath; J45.909 Unspecified asthma, uncomplicated
CPT/HCPCS: 82607; 82746; 83540; 84443; 85025; 96127; 99212

== ENCOUNTER 2025-06-23 14:15 | Outpatient (AMB) | payer MEDICARE, SELFPAY ==
--- NOTE | 2025-06-23 14:28 | MHC.PC.OV ---
Vital Signs 06/23/25 14:31 Height 5 ft 4 in Weight 180 lb BMI 30.9 BP 161/67 H Blood Pressure Location Lt brachial Position Sitting Respiration 14 Pulse 92 Pulse Source Pulse Oximeter Temp 97.9 F Temp Source Temporal Artery Scan Pulse Oximetry (%) 100 Oxygen Delivery Method Room Air Intake Visit Reasons: Congestive heart failure Intake Note: ED c follow up sob Cvir Tech Required: No Allergies lisinopril Allergy (Severe, Verified 06/23/25 14:28) Anaphylaxis Tobacco use date assessed: 06/23/25 Fall risk assessment: No Falls in past year Last assessed Fall Risk: 06/23/25 Dental Screening Dental Screen Date: 06/23/25 Did you have a dental visit in the last 12 months?: Yes Did you have a dental problem in the last 6 months where you did not have access to dental care?: No Was dental information given to patient?: Patient has dentist HPI HPI Comments History of Present Illness Details The patient is a 75 year old female with a past medical history of diabetes, hypertension, GERD, asthma, eczema, cirrhosis, ICM, venous insufficiency presenting for ER follow up She was evaluated in the ER on 05/27/25. Presented with week to 2 week history of shortness of breath and fatigue. CXR reassuring. EKG LBBB same as prior. BNP<300. Viral swabs negative. Hgb 8.9. Advised likely bronchitis/asthma exercation. She received prednisone x 4 days. Reports that she still feels like she is increasingly anemic CV: Follows with [facility] in [place]. She is on norvasc, aldactone. LBBB. Denies chest pain. Still endorsing some shortness of breath Asthma: On albuterol flovent GI: Follows with Dr Vaca Previously seen by [facility]ology[facility]. Has history of ROSANNE. Reports that she thinks she needs an infusion. Dr Martinez previously ordered. In the past was following with [facility] and [facility] Colonoscopy-reports UTD Mammo overdue-ordered ROS CONSTITUTIONAL: Denies weight loss, fever and chills. HEENT: Denies changes in vision and hearing. RESPIRATORY: Denies SOB and cough. CV: Denies palpitations and CP GI: Denies abdominal pain, nausea, vomiting and diarrhea. : Denies dysuria and urinary frequency. MSK: Denies new myalgia and joint pain. SKIN: Denies rash and pruritus. NEUROLOGICAL: Denies headache PSYCHIATRIC: Denies recent changes in mood. PHYSICAL EXAM: GENERAL: Alert and oriented x 3. NAD EYES: EOMI. Anicteric. HENT: Moist mucous membranes. No scleral icterus. No cervical lymphadenopathy. LUNGS: Clear to auscultation bilaterally. CARDIOVASCULAR: Regular rate and rhythm. No murmur. No JVD. ABDOMEN: Soft, non-tender +bs EXTREMITIES: No edema. Non-tender. SKIN: No rashes or lesions. Warm. NEUROLOGIC: No focal neurological deficits. CN II-XII grossly intact PSYCHIATRIC: Cooperative. Appropriate mood and affect [facility] Social History Housing: House Patient Tobacco Use Status: Never used Tobacco e-Cigarette/Vaping Use: Never Used Second Hand Smoke Exposure: No service: No Current occupational status: retired Cognitive needs: No Hearing needs: No Vision needs: No Questionnaire PHQ-9 Over the last 2 weeks, how often have you been bothered by any of the following problems? 1. Little interest or pleasure in doing things: not at all 2. Feeling down, depressed, or hopeless: not at all 3. Trouble falling or staying asleep, or sleeping too much: not at all 4. Feeling tired or having little energy: not at all 5. Poor appetite or overeating: not at all 6. Feeling bad about yourself - or that you are a failure or have let yourself or your family down: not at all 7. Trouble concentrating on things, such as reading the newspaper or watching television: not at all 8. Moving or speaking so slowly that other people could have noticed. Or the opposite - being so fidgety or restless that you have been moving around a lot more than usual: not at all 9. Thoughts that you would be better off or of hurting yourself in some way: not at all Total score: 0 Depression Screening Interpretation: Negative Depression Screening Done: Yes 51198 - PHQ-9 Billing: Yes Source: Developed by Drs. Leonel Messina, Brianna Vail, Rock Castano and colleagues, with an educational dionisio from [employer]. Thrive Questionnaire Date Thrive assessed: 06/23/25 I am a: Patient What is your living situation today?: I have a steady place to live Within the past 12 months, did the food you bought not last and you didn't have the money to get more?: Never true Within the past 12 months, did you worry whether your food would run out before you got money to buy more?: Never true Do you have trouble paying for medicines?: No Do you have trouble getting transportation to medical appointments?: No Do you have trouble paying your heating and electricity bill?: No Do you have trouble taking care of your child, family member or friend?: No Do you have trouble with day-to-day activities such as bathing, preparing meals, shopping, managing finances, etc.?: No Are you currently unemployed and looking for a job?: No Are you interested in more education?: No THRIVE Score: 0 AUDIT C Alcohol Use Questionnaire (AUDIT-C) 1. How often do you have a drink containing alcohol?: 2-3 times a week 2. How many drinks containing alcohol do you have on a typical day when you are drinking?: 1 or 2 3. How often do you have six or more drinks on one occasion?: Never Total Score: 3 DENNIS-7 AMB Questionnaire DENNIS-7 Date DENNIS - 7 assessed: 06/23/25 Feeling nervous, anxious, or on edge: 0 = Not at all Not being able to stop or control worryin = Not at all Worrying too much about different things: 0 = Not at all Trouble relaxin = Not at all Being so restless that it is hard to sit still: 0 = Not at all Becoming easily annoyed or irritable: 0 = Not at all Feeling afraid as if something awful might happen: 0 = Not at all Total DENNIS-7 score (0-4 normal; 5-9 mild; 10-14 moderate; 15-21 severe): 0 Source: Developed by Drs. Leonel Messina, Brianna Vail, Rock Castano and colleagues, with an educational dionisio from [employer]. DENNIS-7 Assessment Billing DENNIS-7 Assessment Tool: DENNIS-7 Assessment 39618 Physical exam (Primary Care) Vital Signs: Last Vital Signs Temp 97.9 F 06/23/25 14:31 Pulse 92 06/23/25 14:31 Resp 14 06/23/25 14:31 BP 161/67 H 06/23/25 14:31 Pulse Ox 100 06/23/25 14:31 Oxygen Delivery Method Room Air 06/23/25 14:31 BMI result Body Mass Index 30.9 Tobacco/Smoking Status: Tobacco use Status Tobacco use date assessed 06/23/25 06/23/25 14:33 Patient Tobacco Use Status Never used Tobacco 06/23/25 14:33 e-Cigarette/Vaping Use Never Used 06/23/25 14:33 PHQ-9: PHQ-9 Score PHQ-9: Total score 0 06/23/25 15:01 Depression Screening Interpretation: Negative Thrive Assessment: Date of Thrive Assessment Date Thrive assessed 06/23/25 06/23/25 14:33 Coding Level of Care Code Est Pt Level 4 (23721) Diagnoses Primary hypertension I10 Hypertension type: primary hypertension Iron deficiency anemia, unspecified iron deficiency anemia type D50.9 Iron deficiency anemia type: unspecified iron deficiency Alcoholic cirrhosis of liver without ascites K70.30 Hepatic cirrhosis type: alcoholic cirrhosis Ascites presence: without ascites Additional Codes DENNIS-7 Assessment Billing - DENNIS-7 Assessment Tool: DENNIS-7 Assessment 08797 ([id number]) PHQ-9 - 50394 - PHQ-9 Billing: Yes ([id number]) Assessment & Plan Assessment & Plan (1) Hypertension: Code(s): I10 - Essential (primary) hypertension Category: Medical Qualifiers: Hypertension type: primary hypertension Qualified Code(s): I10 - Essential (primary) hypertension (2) Iron deficiency anemia: Code(s): D50.9 - Iron deficiency anemia, unspecified Category: Medical Qualifiers: Iron deficiency anemia type: unspecified iron deficiency Qualified Code(s): D50.9 - Iron deficiency anemia, unspecified (3) Cirrhosis: Code(s): K74.60 - Unspecified cirrhosis of liver Category: Medical Qualifiers: Hepatic cirrhosis type: alcoholic cirrhosis Ascites presence: without ascites Qualified Code(s): K70.30 - Alcoholic cirrhosis of liver without ascites Plan 75 year old female for ER follow up ER course reviewed Hypertension is well controlled. Continue cardiology follow up in [place] Continue GI follow up for cirrhosis. She will follow Dr Vaca Check labs Orders: Orders Complete Blood Count Auto Diff 06/23/25 D50.9 - Iron deficiency anemia, unspecified, I10 - Essential (primary) hypertension, K70.30 - Alcoholic cirrhosis of liver without ascites, R53.83 - Other fatigue IRON PROFILE 06/23/25 D50.9 - Iron deficiency anemia, unspecified, I10 - Essential (primary) hypertension, K70.30 - Alcoholic cirrhosis of liver without ascites, R53.83 - Other fatigue Pathologist Review - CBC 06/23/25 D50.9 - Iron deficiency anemia, unspecified, I10 - Essential (primary) hypertension, K70.30 - Alcoholic cirrhosis of liver without ascites, R53.83 - Other fatigue TSH reflex Free T4 06/23/25 D50.9 - Iron deficiency anemia, unspecified, I10 - Essential (primary) hypertension, K70.30 - Alcoholic cirrhosis of liver without ascites, R53.83 - Other fatigue Vitamin B12 and Folate 06/23/25 D50.9 - Iron deficiency anemia, unspecified, I10 - Essential (primary) hypertension, K70.30 - Alcoholic cirrhosis of liver without ascites, R53.83 - Other fatigue
[2025-06-23 14:31] VITALS: BP 161/67; PULSE 92; RESP 14; TEMP 36.6; O2SAT 100; BMI 30.9
--- OUTSIDE RECORDS SUMMARY | 2025-06-23 17:15 | XMS_ITS | Encounter Summary ---
Author Organization [facility] Address [address] [place] [phone] Phone Care Team Providers Care Fender Repairer Name Role Phone Pcp, Unknown Primary Care Provider Unavailgita e Julianne Taylor MD Unavailable [email or web address] Maurizio Martinez MD Primary Care Provider Julianne Taylor MD Unavailable [email or web address] Encounter Details Date Type Department Care Team (Late st Contact Info) Description 04/27/2023 Procedure Pass [facility] Cardiac US [address] [place] [address] Social History Tobacco Use Types Packs/Day Years [...] documented as of this encounter Care Teams Fender Repairer Relationship Specialty Start Date End Date Pcp, Unknown PCP - General 01/10/23 12/05/23 Maurizio Martinez MD [address] [place] [address] [place] [address] PCP - General Internal Medicine 12/06/23 Julianne Taylor MD Partners Attributed Provider 04/28/23 12/05/23 Julianne Taylor MD Partners Attributed Provider 04/28/23 12/28/23 documented as of this encounter Additional Source Comments The information contained in this document represents components of the legal health record. It is not the complete legal health record.[facility]
--- OUTSIDE RECORDS SUMMARY | 2025-06-23 17:15 | XMS_ITS | Clinical Summary ---
Author Organization Located Within [facility] Address [address] [facility] [address] [place] [id number] Phone Care Team Providers Care Construction Consultant Name Role Phone Maurizio Martinez MD Primary Care Provider Allergies Active Allergy Reactions Criticality Noted Date Comments Lisinopril Angioedema High 12/06/2020 Medications albuterol 90 mcg/actuation inhaler Inhale 2 puffs into the lungs every 4 (four) hours as needed. 8 Inhaler 1 1 Active sertraline (ZOLOFT) 50 MG tablet Take 1 tablet (50 mg total) by mouth daily. 90 tablet 1 1 Active carvedilol (COREG) 3.125 MG tablet Take 1 tablet (3.125 mg total) by mouth 2 (two) times a day with meals. 180 tablet 3 1 Active atorvastatin (LIPITOR) 80 MG tablet Take 1 tablet (80 mg total) by mouth nightly at bedtime. 30 tablet 1 Active Additional Information Patient not taking.Reported on 04/05/2022 magnesium oxide (MAG-OX) 400 mg (241.3 mg elemental) tablet Take 1 tablet (400 mg total) by mouth 2 (two) times a day. 60 tablet 3 1 Active spironolactone (ALDACTONE) 25 MG tablet Take 25 mg by mouth daily. Active budesonide-formo terol (SYMBICORT) 80-4.5 mcg/actuation inhalerIndicatio ns:Asthma, unspecified asthma severity, unspecified whether complicated, unspecified whether persistent Inhale 2 puffs into the lungs 2 (two) times a day. 10.2 g 3 2 Active furosemide (LASIX) 40 MG tablet Take 1 tablet (40 mg total) by mouth daily. 90 tablet 3 3 Active empagliflozin (JARDIANCE) 10 mg tablet Take 1 tablet (10 mg total) by mouth daily. 90 tablet 3 4 Active amLODIPine (NORVASC) 5 MG tablet Take 1 tablet (5 mg total) by mouth daily. 90 tablet 3 4 Active Active Problems Problem Noted Date Diagnosed Date Chronic bilateral low back pain without sciatica 04/06/2022 Overview (04/06/2022): Lower back pressure, worse when first standing up with position changes and laying down flat. Sometimes sleeps in recliner because of back pain. Sometimes gets better after walking other times not. Tylenol helped. Whole lower back. No stiffness. Ongoing for two months. Ultrasound and xray of lower spine at [facility] that reportedly showed old compression fracture in L1. Has not done physical therapy since when she was in the hospital. Occasionally advil. No radiation of pain. No pain in hips or knees. Assessment & Plan (04/06/2022 2:16 PM EDT): No urinary/bowel symptoms, radicular symptoms, derick weakness. No history of cancer (though not utd on cancer screening) or symptoms of infection. No point tenderness along spine. Generalized tenderness to palpation in paraspinal muscles in lumbar area. Has reportedly unrevealing plain radiograph and ultrasound at [facility] (unfortunately we do not have those records available). Has known history of compression fracture of L1 from 10/2021. - physical therapy referral - close follow up for improvement of symptoms, could consider MRI if not improving - osteoporosis w/u as elsewhere - try to get [facility] imaging records Shortness of breath 04/06/2022 Overview (04/06/2022): Shortness of breath ongoing since hospitalization in october and even before that since September 2020. Attributed to anemia during last hospitalization 10/2021. Had some improvement with PRBC. Has been having serial monitoring of Hgb at [facility] and seen by hematology with bone marrow biopsy. Was told bone marrow biopsy was inconclusive. Shortness of breath brought on by walking. Alleviated by sitting or inhaler. Inhaler does not always help, helps about 75% of the time. Diagnosed with asthma in her late 30s. Had spirometry with reversal previously, not recently done. 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 Currently taking albuterol and combivent. Sometimes shortness of breath feels like asthma other times different. No associated chest pain, back pain, reflux. Cannot walk up stairs without getting short of breath. Can walk 15 feet before shortness of breath. Never smoker. Assessment & Plan (04/06/2022 1:49 PM EDT): Patient has had chronic exertional shortness of breath. Has several possible etiologies of dyspnea. Cardiac component seems well managed currently, no orthopnea, swelling, at dry weight. Recent echo with mild and mild-moderate mitral regurgitation. Last coronary angiography without obstructive CAD. Anemia has been suggested as route cdl driver, though seems like an extreme exercise limitation for relatively modest drop in hemoglobin in someone with chronic anemia. Certainly component of deconditioning. Given wheezing and frequent improvement with albuterol would work on optimizing asthma regimen. No significant allergy symptoms. 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 Offered additional resources and/or medications to help reduce cravings, deferred for now. No hx withdrawal. Positive colorectal cancer screening using Colog uard test 04/06/2022 Overview (04/06/2022): Reportedly positive cologuard 05/2020. Has declined colonoscopy and EGD. Assessment & Plan (04/06/2022 2:18 PM EDT): Discussed findings of positive cologuard with concern for GI malignancy. Discussed risk/benefit of EGD and colonoscopy. She understands the risks of not proceeding and she continues to decline. Age-related osteoporosis wit hout current pathological fracture 04/06/2022 Overview (04/06/2022): History of L1 fracture likely 2/2 osteoporosis. On Ca/Vit D. Assessment & Plan (04/06/2022 2:30 PM EDT): - ordered DEXA scan Type 2 diabetes mellitus 04/06/2022 Overview (04/06/2022): History of diabetes, diet controlled. HEMOGLOBIN A1C Date Value Ref Range Status 12/07/2020 5.0 4.3 - 5.6 % Final Comment: HbA1c levels 5.7-6.4% represent pre-diabetes, indicating impaired glucose control and an increased risk of developing diabetes compared with lower HbA1c levels. The diagnostic HbA1c level for diabetes is 6.5% or greater. Autoimmune hemolytic anemia 04/04/2022 Acute exacerbation of CHF (congestive heart fail ure) 11/09/2021 Assessment & Plan (11/10/2021 2:42 PM EDT): Progressive ELIAS w/o typical angina. History of weight gain as an outpatient raising concern for subacute fluid accumulation and leading a heart failure exacerbation. Baseline chronic systolic heart failure w/ recovered LVEF to 60%. [facility] w/ minimal coronary disease. Moderate MR. EKG w/ e/o LBBB (140ms), likely leading to dyssynchrony. Elevated BP to 200/90 on arrival. No e/o PE, pulm edema, pna, nor asthma exacerbation. TSH 4.49 - Appreciate input from her continuity terminal clerk - Lasix 20mg IV x 1 today - Standing weights, daily - Decrease hydralazine to 12.5mg q8 hours - Continue coreg 6.25mg BID - If BPs elevated, would increase coreg to 12.5mg BID (notes say she has been on this dose, though fill records say 6.25mg) - Pending TTE - need to discuss with cards about whether or not to be on aspirin? - assess for covid 19 booster NYHA class 1 heart failure with reduced ejection fraction 01/06/2021 AVERY (acute kidney injury) 01/06/2021 Nonrheumatic mitral valve regurgitation 01/07/20 21 Pancytopenia 12/12/2020 Overview (04/06/2022): Has chronic pancytopenia with normal SPEP/SFLC, folate (previously low on supplementation), B12, and iron studies. CTAP unrevealing aside from known cirrhosis/splenomegaly. 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 The B cell clone comprises only 1% of cellularity by flow cytometry. Normal hematopoietic marrow with minimal morphologic dysplasia and no increase in blasts... may represent a monoclonal B lymphocytosis or possibly an unrecognized B-cell lymphoproliferative disorder...the cause of pancytopenia may not be related to the B cell clone, although morphologic dysplasia appears insufficient to establish myelodysplastic syndrome...MDS could be considered as diagnosis of exclusion Assessment & Plan (04/06/2022 2:28 PM EDT): - requested they obtain records from most recent hematology visit for further interpretation of bone marrow biopsy - offered second evaluation here at [facility] if they would like with our hematology team, they declined for now and would like to follow with current equine intern Assessment & Plan (11/10/2021 2:44 PM EDT): Chronic, h/o folate deficiency. MCV 108. Cirrhosis likely contributing to thrombocytopenia. Leukopenia's significance unclear. Prior labs w/ REGINO 1:320 and low c3/c4. Folate and B12 are normal - Follow up SPEP, FLC, UPEP - consider rheum referral -- or review if she has outpt one Assessment & Plan (12/15/2020 10:00 AM EDT): Previously with thrombocytopenia, but now with pancytopenia (leukopenia to 2s and anemia-Hgb 9). Her anemia is macrocytic and is likely due to a combination of cirrhosis, folate deficiency, and bone marrow suppression (?alcohol). She may have chronic GI loses, but none clinically evident. Her cirrhosis is likely also to account for her elevated INR to 1.5. Her work up is most likely consistent with her known cirrhosis. S/p Vitamin K trial 12/12-) without change in INR. Work up: -Normal/negative: iron studies, B12, SPEP ratio, Anti-Sm/PHLEBOTOMIST SUPERVISOR/INSTRUCTOR, dsDNA, -Abnormal: folate low at 2.4, CRP slightly elevated at 12.5, C3 and C4 slightly low - Trend INR, CBC Microscopic hematuria 12/12/2020 Assessment & Plan (12/15/2020 10:00 AM EDT): 5-10 RBCs in random UA, no protein. No signs of infection. Pt w/o hx of derick hematuria or smoking. Pt w relative coagulopathy here w Plts 60s and INR 1.5 iso cirrhosis - o/p hematuria eval Alcoholic cirrhosis of liver with ascites 2020 Overview (04/06/2022): Thought 2/2 MAYES vs alcohol use. Follows with hepatology in [facility] last 05/2021. Volume: Has ascites and HFrecEF. Ascites high SAAG. Ascites protein 1.5. Infection: no hx SBP, no current indication for primary ppx Bleeding: No known history of GIB. Discussed indications for EGD (EV screen) and colonoscopy (colon ca screen). We discussed risks and benefits, which she understood but does not wish to pursue these screening tests at this time. Encephalopathy: No hx HE Screening: HBV immune, HCV negative, HAV nonimmune. RUQUS 11/2020 w/o focal lesion and AFP 11/2021 normal. Assessment & Plan (04/06/2022 2:10 PM EDT): - recommended f/u with hepatology (she favors getting imaging at [facility]) - due for RUQUS - due for EGD (discussed risk/benefit, she declines for now) - recommended HAV immunization, discussion reasoning - recommended alcohol cessation, discussed risks of ongoing damage to liver Assessment & Plan (12/15/2020 9:59 AM EDT): MAYES vs EtOH cirrhosis. New diagnosis of cirrhosis this admission on RUQUS, with moderate level ascites. No known hx of GIB, HE, alk hep or SBP. Positive REGINO at 1:320 but otherwise autoimmune w/u negative to date. Awaiting LKM/liver cytosol Ab - Consult to hepatology, they have signed off and will see her in clinic--will call her to schedule - Work up pending for cirrhosis: LKM and Liver cytosol Ab - Volume: as per under CHF. Ascites w high SAAG low TP c/w portal hypertensive etiology for hepatic origin. - Infection: no prior history of SBP, not on ppx. S/p Dx para 12/10, no evidence of SBP. Does not meet criteria at this time for primary ppx. - Bleeding: no known history of GIB although low Hgb (also with folate deficiency), needs screening EGD +/- colo for normal age appropriate cancer screening. On BB for HTN. - Encephalopathy: no known history of HE, not altered this admission - Screening: HBV immune, HCV neg. RUQUS without mass 11/2020. Needs Hep A vaccine on discharge. AFP. Essential hypertension 12/07/2020 Assessment & Plan (04/06/2022 2:19 PM EDT): Elevated BP in the office. Requested she take home BP measurement and send them. She has BP cuff at home and knows how to use. Reviewed good technique. Assessment & Plan (12/13/2020 4:42 PM EDT): Pt with BPs 160-170s in the ED initially, improved with addition of carvedilol. Pt was on dilt prior to admission, which is contraindicated in HFrEF. Now well controlled on carvedilol. - Continue carvedilol - Continue lasix and spironolactone for diuresis Wheezing 12/07/2020 Assessment & Plan (12/13/2020 4:41 PM EDT): More likely cardiac wheeze than due to asthma exacerbation (was treated for this 2 weeks prior). No hx of hospitalization or intubations. Resolved with diuresis. No wheezing on exam, though some dyspnea with walking. - Continue flovent BID - Continue albuterol inhaler PRN - Continue diuresis Acute combined systolic and diastolic heart fail ure 12/06/2020 Assessment & Plan (12/15/2020 9:58 AM EDT): NEW DIAGNOSIS - Presented with 1 month of worsening dyspnea, as well as 1-2 weeks of LE edema and weight gain. CXR with interstitial edema and proBNP elevated.TTE here re-demonstrates HFrEF (LVEF 44%) with diffuse LV hypokinesis but worst in inferior wall, normal RV function and functional MR as well as possible mild pHTN that was seen on her initial TTE done at the OSH. Ischemia was less likely as she had no chest pain or trop elevation, despite ST-depressions seen on her admission ECG. Of note, she had been told she would need cardiac surgery for her findings. RHC on 12/10 showed a wedge of 23. Current goal is to continue aggressive diuresis until euvolemic (and slight increase in BUN or Cr). - strict I/Os - daily standing weights - Preload: lasix 120mg IV BID, spironolactone 100mg daily (given liver disease)--give AM dose of lasix today and recheck PM lytes to see if nearing bump in BUN/Cr, if so, will switch to PO - Afterload: stopped diltiazem, restart coreg at lower dose given bradycardia and pause - GDMT: -- Continue aspirin and atorvastatin -- Consider adding empagliflozin for HF (A1c 5.0, prior hx of diet controlled DM). entresto contraindicated given h/o angioedema - cardiology f/u scheduled in [facility] Dietary folate deficiency anemia 12/06/2020 Resolved Problems Problem Noted Date Diagnosed Date Resolved Date Leg wound, right 11/09/2021 04/06/2022 Assessment & Plan (11/10/2021 2:45 PM EDT): Traumatic w/ delayed healing. Prior HgbA1c 5.0 in 2020 - Would recommend PROCESSOR SOLID PROPELLANT evaluation once she is on the medical floor - Blood cultures NGTD - s/p tdap on 10/12 Known medical problems 12/06/202004/06 Assessment & Plan (11/10/2021 2:46 PM EDT): # EtOH cirrhosis (presumed) - prior ascites, compensated. MELD 13. - Can follow up as an outpatient # AUD - consider ACT consultation if she is amenable, cont thiamine # mood - cont sertraline # asthma - cont ICS Assessment & Plan (12/13/2020 4:37 PM EDT): # NIDDM: previously on metformin, now diet-controlled. A1c 5.0. Blood sugars have been within goal during this hospitalization. # Depression: cont home sertraline 50mg QD Immunizations Immunization Administration Dates Next Due Influenza High-Dose Quadriva lent Preservative Free IM 11/14/2021(Deferred: Patient Refused) Tdap 11/09/2021 Family History Medical History Relation Comments Suicide Father Throat cancer Maternal Grandfather Diabetes Maternal Grandmother Heart attack Maternal Uncle Stroke Mother Stroke Paternal Grandfather Bradycardia Son Seizures Son Relation Status Comments Father Maternal Grandfather Maternal Grandmother Maternal Uncle Mother Paternal Grandfather Son Social History Tobacco Use Types Packs/Day Years Used Date Smoking Tobacco: Never Smokeless Tobacco: Never Tobacco Cessation:Counseling Given: Not Answered Alcohol Use Standard Drinks/Week Comments Yes 14 [...] Orientation Straight 11/26/2020 11 :38 AM EDT Last Filed Vital Signs Vital Sign Reading Time Taken Comments Blood Pressure 163/64 06/27/2024 1:03 PM EST Pulse 69 06/27/2024 1:03 PM EST Temperature 36.2 C (97.2 F) 09/18/2022 2:15 PM EST Respiratory Rate 18 09/18/2022 2:15 PM EST Oxygen Saturation 100% 09/18/2022 2:15 PM EST Inhaled Oxygen Concentration - - Weight 85.3 kg (188 lb) 06/27/2024 1:03 PM EST Height 154.9 cm (5' 0.98 ) 05/28/2024 2:04 PM ED T Body Mass Index 35.54 05/28/2024 2:04 PM EDT Plan of Treatment Health Maintenance Due Date Last Done Comments HEPATITIS A VACCINES (1 of 2 - Risk 2-dose series) 1969 PNEUMOCOCCAL VACCINES (50+ years) (1 of 2 - PCV) 1969 COLOGUARD 1995 COLONOSCOPY 1995 COLORECTAL CANCER SCREENING 1995 FIT TEST 1995 FOBT 1995 SIGMOIDOSCOPY 1995 VIRTUAL COLONOSCOPY 1995 ZOSTER VACCINES (1 of 2) 2000 OSTEOPOROSIS SCREENING INITIAL (ONE-TIME) 2015 DIABETIC EYE EXAM 04/06/2022 URINE MICROALBUMIN/CREATININE RATIO 04/06/2022 12/11/2020, 12/11/2020 DEPRESSION SCREENING 04/04/2023 04/04/2022, 04/04/20 22 HEMOGLOBIN A1C 06/22/2024 12/21/2023, 02/18, 08/25/2022, Additional history exists BLOOD PRESSURE 12/25/2024 06/27/2024 INFLUENZA VACCINE (#1) 2025 RSV VACCINE (1 - 1-dose 75+ series) 2025 COVID-19 VACCINE ( - season) 2025 11/21/2020, 10/31/2020 POTASSIUM LEVEL 06/27/2025 06/27/2024, 05/0 10/2023, 04/27/2023, Additional history exists Adult Td,Tdap Booster 11/10/2031 11/09/2021 HEPATITIS C SCREENING Completed 11/11/2021, 021 SMOKING STATUS SCREENING (Once After 26 Yrs) Completed 06/27/2024 HIB VACCINES Aged Out No longer eligi ble based on patient's age to complete this topic MENINGOCOCCAL VACCINES (ACWY) Aged Out No longer eligible based on patient's age to complete this topic MENINGOCOCCAL VACCINES (B) Aged Out N o longer eligible based on patient's age to complete this topic Medical Devices Not on file Procedures Procedure Name Priority Date/Time Associated Diagnosis Comments BASIC METABOLIC PANEL (BMP) Routine 06/27/2024 3:25 PM EST Heart failure, unspecified HF chronicity, unspecified heart failure type HEMOGLOBIN A1C Routine 12/21/2023 12:11 PM EDT Cardiomyopathy, unspecified type HEPATITIS C ANTIBODY, QUALITATIVE Routine 11/11/2021 5:25 AM EDT MICROALBUMIN/CREATIN INE, RANDOM URINE Routine 12/11/2020 5:30 PM EDT from Last 3 Months or Most Recently Relevant to Health Maintenance Results * Basic metabolic panel (06/27/2024 3:25 PM EST) SODIUM 141 135 - 145 mmol/L [facility] POTASSIUM 4.6 3.4 - 5.0 mmol/L [facility] CHLORIDE 107 98 - 108 mmol/L [facility] CO2 24 23 - 32 mmol/L [facility] BUN 18 8 - 25 mg/dL [facility] CREATININE 0.95 0.50 - 1.00 mg/dL [facility] GLUCOSE 98 70 - 110 mg/dL [facility] CALCIUM 8.6 8.5 - 10.5 mg/dL [facility] EGFR 63 >59 mL/min/1.7 3m2 [facility] Comment:Estimated glomerular filtration rate calculated using the CKD-EPI refit equation. ANION GAP 10 3 - 17 mmol/L [facility] 06/27/2024 3:25 PM EST 06/27/2024 5:57 PM EST us Sj Doty MD, PhD LAB BLOOD BKR ORD ERABLES Final Result [facility] [address] [place] [address] * Hemoglobin A1c (12/21/2023 12:11 PM EDT) HEMOGLOBIN A1C 4.9 4.3 - 5.6 % [facility] Comment:HbA1c levels 5.7-6.4 % represent pre-diabetes, indicating impaired glucose control and an increased risk of developing diabetes compared with lower HbA1c levels. The diagnostic HbA1c level for diabetes is 6.5% or greater. CALC MEAN BLD GLUC 94 mg/dL [facility] Comment:There is no establis hed normal range for the Calculated Mean Blood Glucose (CMBG), however a HbA1c of 5.6% (upper limit of normal) represents a CMBG of 114 mg/dL. The diagnostic hemoglobin A1c level for diabetes is greater than or equal to 6.5% which represents a CMBG greater than or equal to 140 mg/dL. 12/21/2023 12:1 1 PM EDT 12/21/2023 5:27 PM EDT us Sj Doty MD, PhD LAB BLOOD BKR ORD ERABLES Final Result Performing Organization Address City/[facility] Co de Phone Number [address] [address] * Hepatitis C antibody, qualitative (11/11/2021 5:25 AM EDT) Pathologist [facility] HCV ANTIBODY Negative Negative [facility] Comment:Antibodies to HCV no t detected. Does not exclude the possibility of exposure to HCV. Blood 11/11/2021 5:25 AM EDT 11/11/2021 6:34 AM EDT us Emmett Donald MD, MPH LAB BLOOD BKR ORDERABL ES Final Result Performing Organization Address [facility]/ZIP Co de Phone Number [address] [address] * MICROALBUMIN/CREATININE, RANDOM URINE (12/11/2020 5:30 PM EDT) MICROALB/CRE RATIO 18.2 <30.0 mg/g Cre [facility] 12/11/2020 5:30 PM EDT 12/11/2020 5:36 PM EDT us Matt Cha MD URINE ORDERABLES Final Result Performing Organization Address City/[facility] Co de Phone Number [address] [address] from Last 3 Months or Most Recently Relevant to Health Maintenance Insurance MEDICARE PART A & B MEDICARE PART A & B MEDICARE PART A & B MEDICARE PART A & B MEDICARE PART A & B MEDICARE PART A & B MEDICARE PART A & B MEDICARE PART A & B MEDICARE PART A & B Advance Directives For more information, please contact: [phone] (9AM - 5PM [facility], Sunday-Sunday) Documents on File Type Date Recorded Patient Reclaimer Expl anation Healthcare Proxy 12/17/2020 3:37 PM * DNR/DNI (No CPR/No Intubation) (Latest Code Status on File) Date Activated Date Inactivated Comments 11/09/2021 9:05 PM Question Answer Comments Code Status Confirmed With: Patient Code Status Communicated To: Inpatient Attending * Full Code Date Activated Date Inactivated Comments 12/06/2020 5:40 PM 11/09/2021 9:05 PM Question Answer Comments Code Status Confirmed With: Patient Code Status Communicated To: Inpatient Attending Care Teams Construction Consultant Relationship Specialty Start Date End Date Maurizio Martinez MD [address] [place] [address] [place] [facility] [address] PCP - General Internal Medicine 12/06/23 Additional Source Comments The information contained in this document represents components of the legal health record. It is not the complete legal health record.Located Within [facility]
--- OUTSIDE RECORDS SUMMARY | 2025-06-23 17:15 | XMS_ITS | Encounter Summary ---
Author Organization [facility] Address [address] [facility] [address] [place] [address] Phone Care Team Providers Care Lead Technologist In Cytogenetics Name Role Phone Maurizio Martinez MD Primary Care Provider [phone] Lili Huff MD Primary Care Provider + Julianne Taylor MD Unavailable [email or web address] Julianne Taylor MD Unavailable [email or web address] Pcp, Unknown Primary Care Provider Unavailabl e Julianne Taylor MD Unavailable [email or web address] Maurizio Martinez MD Primary Care Provider [phone] Julianne Taylor MD Unavailable [email or web address] Encounter Details Date Type Department Care Team (Late st Contact Info) Description 11/09/2021 Procedure Pass [facility]iac US [address] [place] [address] Social History Tobacco Use Types Packs/Day Years Used Date Smoking Tobacco: Never Smokeless Tobacco: Never Alcohol Use Standard Drinks/Week Comments Yes 2 (1 standard drink = 0.6 oz pur e alcohol) previously drank more Comments Unknown Sex and Gender Information Value Date Recorded Sex Assigned at Female 11/26/2020 11:38 AM EDT Legal Sex Female 11:24 AM EDT Gender Identity Female 11/26/2020 11:38 AM EDT Sexual Orientation Straight 11/26/2020 11 :38 AM EDT documented as of this encounter Functional Status * Calculated C-SSRS Risk Score (Lifetime/Recent) Answer Date of Assessment Author No Risk Indicated 11/10/2021 5:00 PM EDT Bettina Bernardo RN * [place] Suicide Severity Rating Scale (Screener/Recent Self-Report) Question Answer Date of Assessment Author 1. Wish to be (Past 1 Month) No 022 5:00 PM EDT Bettina Bernardo RN 2. Non-Specific Active Suici melva Thoughts (Past 1 Month) No 11/10/2021 5:00 PM EDT Bettina Bernardo RN 6. Suicidal Behavior (Lifetime) No 2 5:00 PM EDT Bettina Bernardo RN documented as of this encounter Plan of Treatment Not on file documented as of this encounter Visit Diagnoses Not on filedocumented in this encounter Additional Health Concerns Infection Onset Date Last Indicated Resolved Time CoV-Risk Comment:Per note documentation 11/09/2021 11/09/2021 4:59 PM EDT documented as of this encounter Care Teams Lead Technologist In Cytogenetics Relationship Specialty Start Date End Date Maurizio Martinez MD [address] [place] [address] Dr ROSE [address] [place] [address] PCP - General Internal Medicine 11/26/20 04/04/22 Lili Huff MD [address] [place] [address] [email or web address] PCP - General Internal Medicine 04/05/22 01/09/23 Julianne Taylor MD [address] [place] [address] PCP - Resident PCP Internal Medicine 04/05/22 01/09/23 Pcp, Unknown PCP - General 01/10/23 12/05/23 Maurizio Martinez MD [address] [place] [address] Dr ROSE [address] [place] [address] PCP - General Internal Medicine 12/06/23 Julianne Taylor MD [employer] Attributed Provider 08/26/22 10/28/22 Julianne Taylor MD [address] [place] [address] Partners Attributed Provider 04/28/23 12/05/23 Julianne Taylor MD [employer] Attributed Provider 04/28/23 12/28/23 documented as of this encounter Additional Source Comments The information contained in this document represents components of the legal health record. It is not the complete legal health record.[facility]
--- OUTSIDE RECORDS SUMMARY | 2025-06-23 17:15 | XMS_ITS | Clinical Summary ---
Author Organization [facility] [address] [facility] Address [address] [place] [address] Phone Care Team Providers Care Heat Plant Specialist Name Role Phone Maurizio Martinez MD Primary Care Provider [phone] Allergies Active Allergy Reactions Criticality Noted Date [...] Date Alcoholic cirrhosis of liver without ascites ([facility] V24, [facility] V28) 08/29/2024 Assessment & Plan (10/17/2024 9:23 [...] and ferritin; Future CHF (congestive heart failure) ([facility] V24, [facility] V28) 08/29/2024 Diabetes ([facility] V24, [facility] V28) 12/17/2020 Hypertension 12/17/2020 PVC (premature ventricular contraction) 12/18/19 21 SOB (shortness of breath) 12/17/2020 Surgical History Surgery Date Site/Laterality Comments CHOLECYSTECTOMY PROCEDURE: HISTORICAL CHOLECYSTECTOMY OTHER SURGICAL HISTORY PROCEDURE: [place] REPOSITIONING IO LENS PROSTHESIS REQ INC SPX ESOPHAGOGASTRODUODENOSCOPY 07/20/2022 - 08/19/2022 nl, no variaces (3yr) Medical History Medical History Date Comments Asthma DX:Asthma Eczema DX:Eczema Nasal polyps DX:Nasal polyps GERD (gastroesophageal reflux disease) DX:GERD (gastroesophageal reflux disease) Venous insufficiency DX:Venous i nsufficiency Depression DX:Depression Macular degeneration DX:Macular degeneration Cirrhosis ([facility] V24, [facility] V28) DX:Cirrhosis (HCC) Social History Tobacco Use [...] 10/17/2024 9:00 AM EST Plan of Treatment Upcoming Encounters Date Type Department Care Team (Late st Contact Info) Description 09/23/2025 11:00 AM EST Office Visit Gastroenterology - [address] [phone] Alisha Chao, FRANCIS [address] [address] Health Maintenance Due Date Last Done Comments Colorectal Cancer Screening: Colonoscopy 1950 Diabetes: Annual Foot Exam 1960 Diabetes: Annual Retina Eye Exam 1960 Hepatitis A Vaccines (1 of 2 - Risk 2-dose series) 1969 Pneumococcal Vaccine: 50+ Years (1 of 2 - PCV) 1969 Zoster Vaccines (1 of 2) 2000 Hepatitis B Vaccines (1 of 3 - Risk 3-dose series) 2010 Cholesterol Screening (Lipid Panel) 07/23/2022 Falls Risk Assessment 07/23/2022 Medicare Annual Wellness Visit 07/23/2022 Osteoporosis Screening (Bone Density Screening) 07/23/2022 Social Influencers of Health Screening 07/23/2022 Diabetes: Annual Urine Albumin-Creatinine Ratio (uACR) 08/02/2022 12/11/2020 Diabetes: Blood Sugar Control Test (HGBA1C) 08/02/2022 Depression Screening 08/20/2024 RSV Immunization Adult Patients (1 - 1-dose 75+ series) 2025 COVID-19 Vaccine ( season) 2025 12/26/2021, 11/21/2020, 10/31/2020 Influenza Vaccine (#1) 2025 Diabetes: Annual GFR [...] EST Alcoholic cirrhosis of liver without ascites ([facility]/HCC V24, CMS/HCC V28) from Last 3 Months or Most Recently Relevant to Health Maintenance Results * (ABNORMAL) Comprehensive metabolic panel (08/29/2024 1:55 PM EST) Sodium 139 133 - 145 mmol/L LAB CHEMISTRY METHOD 08/29/2024 3:17 PM EST [facility] Potassium 4.4 3.5 - 5.5 mmol/L LAB CHEMISTRY METHOD 08/29/2024 3:17 PM EST [facility] Chloride 109 96 - 110 mmol/L LAB CHEMISTRY METHOD 08/29/2024 3:17 PM [facility] CO2 24 21 - 32 mmol/L LAB CHEMISTRY METHOD 08/29/2024 3:17 PM [facility] Anion Gap 6 3 - 11 LAB CHEMISTRY METHOD 08/29/2024 3:17 PM [facility] Glucose 103(H) 70 - 100 mg/dL LAB CHEMISTRY METHOD 08/29/2024 3:17 PM [facility] BUN 15 5 - 25 mg/dL LAB CHEMISTRY METHOD 08/29/2024 3:17 PM [facility] Creatinine 1.03 0.50 - 1.10 mg/dL LAB CHEMISTRY METHOD 08/29/2024 3:17 PM [facility] eGFR 57(L) >=60 mL/min/1. 73m2 LAB CHEMISTRY METHOD 08/29/2024 3:17 PM [facility] Comment:Calculation based on the Chronic Kidney Disease Epidemiology Collaboration (CKD-EPI) equation refit without adjustment for race. BUN/Creatinine Ratio 14.6 LAB CHEMISTRY METHOD 08/29/2024 3:17 PM [facility] Calcium 8.0(L) 8.5 - 10.5 mg/dL LAB CHEMISTRY METHOD 08/29/2024 3:17 PM [facility] AST (SGOT) 47(H) 10 - 42 unit/L LAB CHEMISTRY METHOD 08/29/2024 3:17 PM [facility] ALT (SGPT) 32 10 - 60 unit/L LAB CHEMISTRY METHOD 08/29/2024 3:17 PM [facility] Alkaline Phosphatase 148(H) 42 - 121 unit/L LAB CHEMISTRY METHOD 08/29/2024 3:17 PM [facility] Total Protein 6.4 6.0 - 8.0 g/dL LAB CHEMISTRY METHOD 08/29/2024 3:17 PM [facility] Albumin 3.1(L) 3.2 - 5.0 g/dL LAB CHEMISTRY METHOD 08/29/2024 3:17 PM EST [facility] Total Bilirubin 2.2(H) 0.0 - 1.4 mg/dL LAB CHEMISTRY METHOD 08/29/2024 3:17 PM EST [facility] Blood Venous blood specimen / Unknown Venipuncture / Unknown 08/29/2024 1:55 PM EST 08/29/2024 2:34 PM EST us Elizabeth LIM LAB BLOOD ORDERABLES Final R esult [facility] [address] [place] [address], from Last 3 Months or Most Recently Relevant to Health Maintenance Insurance MEDICARE Care Teams Heat Plant Specialist Relationship Specialty Start Date End Date Maurizio Martinez MD [address] [place] [address] [place] [phone] PCP - General 09/09/07
--- OUTSIDE RECORDS SUMMARY | 2025-06-23 17:15 | XMS_ITS | Encounter Summary ---
Author Organization [facility] Address [address] [facility] [address] [place] [address] Phone Care Team Providers Care Guard Sergeant Name Role Phone Maurizio Martinez MD Primary Care Provider [phone] Lili Huff MD Primary Care Provider + Julianne Taylor MD Unavailable [email or web address] Julianne Taylor MD Unavailable [email or web address] Pcp, Unknown Primary Care Provider Unavailabl e Julianne Taylor MD Unavailable [email or web address] Maurizio Martinez MD Primary Care Provider [phone] Julianne Taylor MD Unavailable [email or web address] Encounter Details Date Type Department Care Team (Late st Contact Info) Description 12/10/2020 Procedure Pass [facility] Cardiac Director Of Sustainability [address] [facility], [address], [address] [place] [address] Social History Tobacco Use Types Packs/Day Years Used Date Smoking Tobacco: Never Smokeless Tobacco: Never Alcohol Use Standard Drinks/Week Comments Yes 10 (1 standard drink = 0.6 oz pu re alcohol) Comments Unknown Sex and Gender Information [...] documented as of this encounter Care Teams Guard Sergeant Relationship Specialty Start Date End Date Maurizio Martinez MD [address] [place] [address] [place] [address] PCP - General Internal Medicine 11/26/20 04/04/22 Lili Huff MD [address] [place] [id number] [email or web address] PCP - General Internal Medicine 04/05/22 01/09/23 Julianne Taylor MD [address] [place] [address] PCP - Resident PCP Internal Medicine 04/05/22 01/09/23 Pcp, Unknown PCP - General 01/10/23 12/05/23 Maurizio Martinez MD [address] [place] [address] [place] [address] PCP - General Internal Medicine 12/06/23 Julianne Taylor MD [email or web address] Attributed Provider 08/26/22 10/28/22 Julianne Taylor MD [address] [place] [address] [email or web address] Attributed Provider 04/28/23 12/05/23 Julianne Taylor MD [email or web address] Attributed Provider 04/28/23 12/28/23 documented as of this encounter Additional Source Comments The information contained in this document represents components of the legal health record. It is not the complete legal health record.[facility]
--- OUTSIDE RECORDS SUMMARY | 2025-06-23 17:15 | XMS_ITS | Encounter Summary ---
Author Organization [facility] Address [address] [facility] [address] [place] [address] Phone Care Team Providers Care Mounter Clarinets Name Role Phone Maurizio Martinez MD Primary Care Provider [phone] Lili Huff MD Primary Care Provider + Julianne Taylor MD Unavailable [email or web address] Julianne Taylor MD Unavailable [email or web address] Pcp, Unknown Primary Care Provider Unavailabl e Julianne Taylor MD Unavailable [email or web address] Maurizio Martinez MD Primary Care Provider [phone] Julianne Taylor MD Unavailable [email or web address] Encounter Details Date Type Department Care Team (Late st Contact Info) Description 12/06/2020 Procedure Pass [facility] [address] [place] [address] Social History Tobacco Use Types Packs/Day Years [...] Date of Assessment Author No Risk Indicated 12/06/2020 5:00 PM EDT Beth Owen RN * [place] Suicide Severity Rating Scale (Screener/Recent Self-Report) Question Answer Date of Assessment Author 1. Wish to be (Past 1 Month) No 12/06/2020 5:00 PM EDT Beth Owen RN 2. Non-Specific Active Suicidal Thoughts (Past 1 Month) No 12/06/2020 5:00 PM EDT Beth Owen RN 6. Suicidal Behavior (Lifetime) No 12/06/2020 5:00 PM EDT Beth Owen RN documented as of this encounter Plan of Treatment Not on file documented as of this encounter Visit Diagnoses Not on filedocumented in this encounter Additional Health Concerns Infection Onset Date Last Indicated Resolved Time CoV-Risk Comment:Per note documentation 12/06/2020 12/06/2020 1 4:02 PM EDT CoV-Risk Comment:Per note documentation 11/09/2021 11/09/2021 2 4:59 PM EDT documented as of this encounter Care Teams Mounter Clarinets Relationship Specialty Start Date End Date Maurizio Martinez MD [address] [place] [address] [place] [address] PCP - General Internal Medicine 11/26/20 04/04/22 Lili Huff MD [address] [address] [email or web address] PCP - General Internal Medicine 04/05/22 01/09/23 Julianne Taylor MD [address] [address] PCP - Resident PCP Internal Medicine 04/05/22 01/09/23 Pcp, Unknown PCP - General 01/10/23 12/05/23 Maurizio Martinez MD [address] [place] [address] [place] [address] PCP - General Internal Medicine 12/06/23 Julianne Taylor MD [employer] Attributed Provider 08/26/22 10/28/22 Julianne Taylor MD [address] [address] [employer] Attributed Provider 04/28/23 12/05/23 Julianne Taylor MD [employer] Attributed Provider 04/28/23 12/28/23 documented as of this encounter Additional Source Comments The information contained in this document represents components of the legal health record. It is not the complete legal health record.[facility]
--- OUTSIDE RECORDS SUMMARY | 2025-06-23 17:15 | XMS_ITS | Encounter Summary ---
Author Organization [facility] Address [address] [facility] [address] [place] [address] Phone Care Team Providers Care Edger Machine Setter Name Role Phone Maurizio Martinez MD Primary Care Provider [phone] Lili Huff MD Primary Care Provider + Julianne Taylor MD Unavailable [email or web address] Julianne Taylor MD Unavailable [email or web address] Pcp, Unknown Primary Care Provider Unavailabl e Julianne Taylor MD Unavailable [email or web address] Maurizio Martinez MD Primary Care Provider [phone] Julianne Taylor MD Unavailable [email or web address] Encounter Details Date Type Department Care Team (Late st Contact Info) Description 11/09/2021 Procedure Pass [facility] Main [address], [address] [place] [address] Social History Tobacco Use Types Packs/Day Years [...] 5:00 PM EDT Bettina Bernardo RN * [place] Suicide Severity Rating Scale (Screener/Recent Self-Report) Question [...] documented as of this encounter Care Teams Edger Machine Setter Relationship Specialty Start Date End Date Maurizio Martinez MD [address] [place] [address] Dr ROSE [address] [place] [address] PCP - General Internal Medicine 11/26/20 04/04/22 Lili Huff MD [address] [place] [id number] [email or web address] PCP - General Internal Medicine 04/05/22 01/09/23 Julianne Taylor MD [address] [place] [address] PCP - Resident PCP Internal Medicine 04/05/22 01/09/23 Pcp, Unknown PCP - General 01/10/23 12/05/23 Maurizio Martinez MD [address] [place] [address] [place] [address] PCP - General Internal Medicine 12/06/23 Julianne Taylor MD [employer] Attributed Provider 08/26/22 10/28/22 Julianne Taylor MD [address] [address] [employer] Attributed Provider 04/28/23 12/05/23 Julianne Taylor MD [employer] Attributed Provider 04/28/23 12/28/23 documented as of this encounter Additional Source Comments The information contained in this document represents components of the legal health record. It is not the complete legal health record.[facility]
--- OUTSIDE RECORDS SUMMARY | 2025-06-23 17:15 | XMS_ITS | Encounter Summary ---
Author Organization [facility] Address [address] [facility] [address] [place] [address] Phone Care Team Providers Care Urgent Care Nurse Practitioner Name Role Phone Maurizio Martinez MD Primary Care Provider [phone] Lili Huff MD Primary Care Provider + Julianne Taylor MD Unavailable [email or web address] Julianne Taylor MD Unavailable [email or web address] Pcp, Unknown Primary Care Provider Unavailabl e Julianne Taylor MD Unavailable [email or web address] Maurizio Martinez MD Primary Care Provider [phone] Julianne Taylor MD Unavailable [email or web address] Encounter Details Date Type Department Care Team (Late st Contact Info) Description 11/11/2021 Procedure Pass [facility] [place] [place] [address] [facility], 6th [place] [address] Social History Tobacco Use Types Packs/Day Years [...] Diagnoses Not on filedocumented in this encounter Care Teams Urgent Care Nurse Practitioner Relationship Specialty Start Date End Date Maurizio Martinez MD [address] [place] [address] [place] [address] PCP - General Internal Medicine 11/26/20 04/04/22 Lili Huff MD [address] [place] [address] [email or web address] PCP - General Internal Medicine 04/05/22 01/09/23 Julianne Taylor MD [address] [place] [address] PCP - Resident PCP Internal Medicine 04/05/22 01/09/23 Pcp, Unknown PCP - General 01/10/23 12/05/23 Maurizio Martinez MD [address] [place] [address] [place] [address] PCP - General Internal Medicine 12/06/23 Julianne Taylor MD [employer] Attributed Provider 08/26/22 10/28/22 Julianne Taylor MD [address] [place] [address] [employer] Attributed Provider 04/28/23 12/05/23 Julianne Taylor MD [employer] Attributed Provider 04/28/23 12/28/23 documented as of this encounter Additional Source Comments The information contained in this document represents components of the legal health record. It is not the complete legal health record.[facility]
--- OUTSIDE RECORDS SUMMARY | 2025-06-23 17:15 | XMS_ITS | Encounter Summary ---
Author Organization [facility] Address [address] [facility] [address] [place] [address] Phone Care Team Providers Care Customer Service Cashier Name Role Phone Maurizio Martinez MD Primary Care Provider [phone] Lili Huff MD Primary Care Provider + Julianne Taylor MD Unavailable [email or web address] Julianne Taylor MD Unavailable [email or web address] Pcp, Unknown Primary Care Provider Unavailabl e Julianne Taylor MD Unavailable [email or web address] Maurizio Martinez MD Primary Care Provider [phone] Julianne Taylor MD Unavailable [email or web address] Encounter Details Date Type Department Care Team (Late st Contact Info) Description 01/28/2021 Procedure Pass [facility]iac US [address] [place] [address] Social History Tobacco Use Types Packs/Day Years [...] documented as of this encounter Care Teams Customer Service Cashier Relationship Specialty Start Date End Date Maurizio Martinez MD [address] [place] [address] [place] [address] PCP - General Internal Medicine 11/26/20 04/04/22 Lili Huff MD [address] [address] [email or web address] PCP - General Internal Medicine 04/05/22 01/09/23 Julianne Taylor MD [address] [place] [address] PCP - Resident PCP Internal Medicine 04/05/22 01/09/23 Pcp, Unknown PCP - General 01/10/23 12/05/23 Maurizio Martinez MD [address] [place] [address] [place] [address] PCP - General Internal Medicine 12/06/23 Julianne Taylor MD [employer] Attributed Provider 08/26/22 10/28/22 Julianne Taylor MD [address] [place] [address] [employer] Attributed Provider 04/28/23 12/05/23 Julianne Taylor MD [employer] Attributed Provider 04/28/23 12/28/23 documented as of this encounter Additional Source Comments The information contained in this document represents components of the legal health record. It is not the complete legal health record.[facility]
== END 2025-06-23 15:26 | disposition home or self-care (01) ==
LOC: HO.HMCFM 14:15
PROVIDERS: PCP Internal Medicine; Visit Provider Internal Medicine
DX: I10 Essential (primary) hypertension (principal); D50.9 Iron deficiency anemia, unspecified; K70.30 Alcoholic cirrhosis of liver without ascites

== ENCOUNTER → 2025-08-03 14:17 | Outpatient (BNV) | payer MEDICARE, SELFPAY | PROVIDERS: PCP Internal Medicine; Referring Provider Internal Medicine; Visit Provider Nurse Practitioner Family | DX: D61.818 Other pancytopenia (principal); K70.30 Alcoholic cirrhosis of liver without ascites | CPT/HCPCS: 99204 ==